=== PATIENT | female | born 1940 | race Caucasian/White ===

== ENCOUNTER 2022-04-20 12:51 | Inpatient (IN) | payer MEDICARE, OTHER, MEDICAID, SELFPAY ==
[2022-04-20] VITALS (11 sets, daily range): BP systolic 114–144; BP diastolic 48–82; PULSE 49–74; RESP 9–18; TEMP 36.2–36.7; O2SAT 94–100; BMI 29.2; BMI 27.8
--- NOTE | 2022-04-20 13:09 | CTR_ITS ---
PROCEDURE INFORMATION: Exam: CT Head Without Contrast Exam date and time: 04/20/2022 1:51 PM Age: 81 years old Clinical indication: Altered mental status/memory loss; Additional info: AMS TECHNIQUE: Imaging protocol: Computed tomography of the head without contrast. Radiation optimization: All CT scans at this facility use at least one of these dose optimization techniques: automated exposure control; mA and/or kV adjustment per patient size (includes targeted exams where dose is matched to clinical indication); or iterative reconstruction. COMPARISON: No relevant prior studies available. RADIATION DOSE METRICS: Total DLP (mGy-cm): 1177.7 FINDINGS: Brain: There is mild diffuse cerebral atrophy present, consistent with this patient's age. Periventricular and subcortical white matter low densities are present which at this age likely represent microvascular ischemic change. No evidence for large acute ischemic infarction. Please note acute ischemia can be occult by head CT. No evidence for acute intracranial hemorrhage. Calcified plaque is present within the intracranial vasculature. Cerebral ventricles: No ventriculomegaly. Paranasal sinuses: Visualized sinuses are unremarkable. No fluid levels. Mastoid air cells: Visualized mastoid air cells are well aerated. Bones/joints: Unremarkable. No acute fracture. Soft tissues: Unremarkable. CT/CT head wo con* [id number] IMPRESSION: There are senescent changes of the brain as described above. No evidence for large acute ischemic infarction or acute intracranial injury.
--- NOTE | 2022-04-20 13:09 | XRR_ITS ---
PROCEDURE INFORMATION: Exam: XR Chest Exam date and time: 04/20/2022 1:47 PM Age: 81 years old Clinical indication: Other: AMS TECHNIQUE: Imaging protocol: Radiologic exam of the chest. Views: 1 view. COMPARISON: No relevant prior studies available. FINDINGS: Lungs: Unremarkable. No consolidation. Pleural spaces: Unremarkable. No pleural effusion. No pneumothorax. Heart/Mediastinum: Unremarkable. No cardiomegaly. Vasculature: There is calcified plaque in the aortic arch. Bones/joints: Unremarkable. XR/XR chest 1V portable [id number] IMPRESSION: No evidence for acute cardiopulmonary disease.
--- NOTE | 2022-04-20 13:11 | W.ED.GENADLT ---
HPI - General Adult General: Chief complaint: Altered Mental Status Stated complaint: poss UTI Time Seen by Provider: 04/20/22 13:08 History of Present Illness: Patient is an 81-year-old female with history of baseline dementia, previous UTI presents to the emergency room with concerns for confusion for the last 3 to 4 days. Per family, patient has become increasingly confused in the last 3 to 4 days. Patient is disoriented to time and family found patient altered rest at 5 AM this morning thinking is 10 AM. In addition, patient was noted and not acting like herself and has has had difficulty finding words. Denies nausea/vomiting, fever/chill, chest pain, shortness of breath, abdominal pain, dysuria/hematuria/polyuria, diarrhea/melena/hematochezia. Onset:3-4 days ago Duration:3-4 days Location:home Severity:moderate Associated symptoms: Deny chest pain, dyspnea, nausea, rash, palpitations or vomiting Review of Systems Const: Denies: fever(s) or chills Eyes: Denies: change in vision ENMT: Denies: mouth pain Card: Denies: chest pain or palpitations Resp: Denies: dyspnea or non-productive cough GI: Denies: abdominal pain, nausea, vomiting or diarrhea : Denies: dysuria Musc: Denies: extremity pain Skin/Breast: Denies: rash or new lesions Neuro: Reports: other (+increased confusion and disorientation); Denies: weakness in extremities Psych: Reports: other (Normal mood) Issac/Lymph: Denies: easy bruising PFS ED PFSH: Medical History Dementia UTI (urinary tract infection) Social History Smoking and tobacco status: never smoked Alcohol intake: never Physical Exam Const: COMMON NORMALS: alert HENMT: COMMON NORMALS: atraumatic HEAD & SCALP: atraumatic MOUTH: moist mucous membranes not abnormal Eye: COMMON NORMALS: EOMs intact bilaterally and conjunctivae normal CONJUNCTIVA: Yes conjunctivae normal Neck/C-Spine: COMMON NORMALS: full ROM and supple Resp: COMMON NORMALS: normal respiratory effort and clear to auscultation bilaterally AUSCULTATION: clear to auscultation bilaterally Cardio: COMMON NORMALS: regular rate RATE: regular rate GI: COMMON NORMALS: Soft to palpation and non-tender PALPATION: Yes Soft to palpation Extremity: COMMON NORMALS: full ROM Neuro: SENSORIUM/ORIENTATION: Yes alert MOTOR EXAM: No Abnormal motor strength present and Other motor observations present (no focal motor deficits) OTHER: AOx3, cranial nerves II through XII intact tact, sensations intact in all extremity, strength 5 out of 5 in all extremity, patient has no language or word finding difficulty on conversation Psych: COMMON NORMALS: speech normal SPEECH: Yes normal speech MOOD & AFFECT: Yes euthymic mood Course Vital Signs: Vital signs: Vital Signs Temperature 97.5 F L 04/23/22 12:00 Pulse Rate 94 04/23/22 12:00 Respiratory Rate 15 04/23/22 12:00 Blood Pressure 117/73 04/23/22 12:00 Pulse Oximetry 98 04/23/22 12:00 Oxygen Delivery Me thod 04/23/22 12:00 MDM - General Adult Medical Decision Making Patient is an 81-year-old female with history of baseline dementia, previous UTI presents to the emergency room with concerns for confusion for the last 3 to 4 days. Physical exam, patient is AAOx3, cranial nerves II through grossly intact. Strength is intact in all extremities. Patient has no receptive or expressive aphasia. Patient is hemodynamically stable. White count 6.7. He 10.7 today without any baseline for comparison. He was negative for any acute findings. CT abdomen pelvis showed left-sided heterogeneous lesion of the kideny. No signs of obstructive uropathy. Incidental findings of L kidney lesion discussed extensively with patient. Patient received a copy of the CT report with the documented findings. Patient is instructed to follow up urgently with specialists. Given THE patient's creatinine of 2.0 I suspect that this is likely related to dehydration given decreased p.o. intake in the last few days. Patient with admitted to hospital for IVF. S/p 500cc of IVF. Disposition: admission Lab Data : 04/23/22 04:13 04/23/22 04:13 Radiology Impressions Chest X-Ray 04/20/22 13:09 IMPRESSION: No evidence for acute cardiopulmonary disease. Head CT 04/20/22 13:09 IMPRESSION: There are senescent changes of the brain as described above. No evidence for large acute ischemic infarction or acute intracranial injury. Abdomen/Pelvis CT 04/20/22 15:14 IMPRESSION: 1. There is a 2.9 cm lesion with internal complexity in the left kidney. CT scan abdomen/pelvis with IV contrast, renal protocol, is recommended for further evaluation. 2. 6 mm calcified density at the left renal hilum may represent a vascular calcification or a nonobstructing calculus. No obstructing urinary tract calculi identified. 3. Colonic constipation is present. COMMENTS: Consistent with the [employer]'s Incidental Findings Committee white paper (J Am Yusef Radiol 2018): Any incidental renal lesion less than 1 cm or classified as too small to characterize, or any incidental cystic renal lesion characterized as simple-appearing, is likely benign. No follow-up imaging is recommended for these lesions per consensus recommendations based on imaging criteria. Laboratory Results WBC 5.6 10^3/uL (4.0-10.0) 04/21/22 05:28 RBC 3.25 10^6/uL (4.1-5.3) L 04/21/22 05:28 Hgb 9.7 g/dL (11.5-15.3) L 04/21/22 05:28 Hct 30.0 % (37.0-47.0) L 04/21/22 05:28 MCV 92.3 fl (81-99) 04/21/22 05:28 MCH 29.8 pg (28.0-34.0) 04/21/22 05:28 MCHC 32.3 g/dL (30.0-36.0) 04/21/22 05:28 RDW 13.2 % (12.1-15.1) 04/21/22 05:28 Plt Count 162 10^3/cmm (130-400) 04/21/22 05:28 MPV 11.1 fL (7.4-10.4) H 04/21/22 05:28 Neut % (Auto) 49.3 % 04/21/22 05:28 Lymph % (Auto) 34.8 % 04/21/22 05:28 [place] % (Auto) 8.6 % 04/21/22 05:28 Eos % (Auto) 4.6 % 04/21/22 05:28 Baso % (Auto) 2.5 % 04/21/22 05:28 Neut # (Auto) 2.76 10^3/uL (1.8-7.7) 04/21/22 05:28 Lymph # (Auto) 2.0 10^3/uL (0.8-4.8) 04/21/22 05:28 [place] # (Auto) 0.5 10^3/uL (0.2-0.9) 04/21/22 05:28 Eos # (Auto) 0.3 10^3/uL (0.0-0.8) 04/21/22 05:28 Baso # (Auto) 0.1 10^3/uL (0.0-0.1) 04/21/22 05:28 Nucleated RBC % (auto) 0 % 04/21/22 05:28 Nucleated RBCs # 0.0 /100WBC 04/21/22 05:28 Sodium 145 mmol/L (136-145) 04/21/22 05:28 Potassium 4.1 mmol/L (3.5-5.1) 04/21/22 05:28 Chloride 113 mmol/L (98-107) H 04/21/22 05:28 Carbon Dioxide 24 mmol/L (22-29) 04/21/22 05:28 Anion Gap 12.1 (5-19) 04/21/22 05:28 BUN 31 mg/dL (8-23) H 04/21/22 05:28 Creatinine 1.7 mg/dL (0.5-0.9) H 04/21/22 05:28 GFR Calculation Not Reportable 04/21/22 05:28 Glucose 101 mg/dL (65-115) 04/21/22 05:28 Estimat Average Glucose 105 04/20/22 13:30 Hemoglobin A1c 5.3 % (4.0-6.0) 04/20/22 13:30 Calculated Osmolality 307 mOsm/kg (285-295) H 04/21/22 05:28 Calcium 8.4 mg/dL (8.5-10.5) L 04/21/22 05:28 Phosphorus 3.6 mg/dL (2.5-4.5) 04/21/22 05:28 Magnesium 1.9 mg/dL (1.7-2.3) 04/21/22 05:28 Iron 43 ug/dL (37-145) 04/21/22 05:28 TIBC 201 mcg/dl 04/21/22 05:28 % Saturation 21.3 % (20-50) 04/21/22 05:28 Unsat Iron Binding 158 ug/dL (112-347) 04/21/22 05:28 Ferritin 99 ng/mL (15-150) 04/21/22 05:28 Total Bilirubin 0.2 mg/dL (0.15-1.2) 04/20/22 13:30 AST 11 U/L (0-32) 04/20/22 13:30 ALT 11 U/L (0-33) 04/20/22 13:30 Alkaline Phosphatase 105 U/L (35-105) 04/20/22 13:30 Troponin T Baseline 27 ng/L (0-10) H 04/20/22 13:30 Troponin T 120 Minute 25.09 ng/L (0-10) H 04/20/22 15:41 Delta Troponin T -1.91 ABS# (0-10) L 04/20/22 15:41 Troponin T Hi Sens 6Hr 23.59 ng/L (0-10) H 04/20/22 18:45 Troponin T Hi Sens 6Hr Delta -3.41 ng/L (0-12) L 04/20/22 18:45 Total Protein 6.8 g/dL (6.6-8.7) 04/20/22 13:30 Albumin 3.8 g/dL (3.5-5.2) 04/20/22 13:30 Globulin 3.0 g/dL (1.3-4.6) 04/20/22 13:30 Triglycerides 186 mg/dL (0-150) H 04/20/22 13:30 Cholesterol 159 mg/dL (0-200) 04/20/22 13:30 LDL Cholesterol, Calc 53 mg/dL (50-129) 04/20/22 13:30 HDL Cholesterol 69 mg/dL (60-100) 04/20/22 13:30 LDL/HDL Ratio 0.77 RATIO (0.00-3.22) 04/20/22 13:30 Cholesterol/HDL Ratio 2.30 mg/dL (0.0-4.40) 04/20/22 13:30 Vitamin B12 262 pg/mL (232-1245) 04/21/22 05:28 Folate > 20.0 ng/mL (4.8-37.3) 04/21/22 05:28 TSH 0.30 uIU/mL (0.27-4.20) 04/20/22 15:41 Free T4 1.07 ng/dL (0.82-1.77) 04/20/22 13:30 Urine Color Yellow (Yellow) 04/20/22 14:54 Urine Appearance Clear (CLEAR) 04/20/22 14:54 Urine pH 6 (5-7) 04/20/22 14:54 Ur Specific [place] 1.020 (1.005-1.030) 04/20/22 14:54 Urine Protein Neg (Negative) 04/20/22 14:54 Urine Glucose (UA) Norm (Normal) 04/20/22 14:54 Urine Ketones 1+ (Negative) H 04/20/22 14:54 Urine Blood 2+ (Negative) H 04/20/22 14:54 Urine Nitrate Negative (Negative) 04/20/22 14:54 Urine Bilirubin Neg (Negative) 04/20/22 14:54 Urine Urobilinogen Neg mg/dL (Negative) 04/20/22 14:54 Ur Leukocyte Esterase Negative (Negative) 04/20/22 14:54 Urine RBC None /hpf (0-2) 04/20/22 14:54 Urine WBC None /hpf (0-5) 04/20/22 14:54 Ur Squamous Epith Cells None /hpf (0-5) 04/20/22 14:54 Amorphous Sediment Not Reportable 04/20/22 14:54 Urine Bacteria None /hpf (NONE) 04/20/22 14:54 Urine Mucus 1+ /hpf 04/20/22 14:54 Urine Yeast 1+ /hpf H 04/20/22 14:54 Imaging Data Other Imaging: Radiologist's impression: [address] [address] [address] Scan Report Signed Patient: Stefanie Black Unit #: [id number] : 1940 Age/Sex: 81 / F ADM Date: 04/20/22 Loc: ER Room/Bed: Attending Dr: Ordering Provider/Ordering MD: Casandra Sanabria MD Date of Service: 04/20/22 Procedure(s): CT abdomen pelvis wo con [id number] Accession Number(s): [id number] Report Number: [id number] PROCEDURE INFORMATION: Exam: CT Abdomen And Pelvis Without Contrast Exam date and time: 04/20/2022 3:20 PM Age: 81 years old Clinical indication: Abdominal pain; Generalized; Eval stone TECHNIQUE: Imaging protocol: Computed tomography of the abdomen and pelvis without contrast. Radiation optimization: All CT scans at this facility use at least one of these dose optimization techniques: automated exposure control; mA and/or kV adjustment per patient size (includes targeted exams where dose is matched to clinical indication); or iterative reconstruction. COMPARISON: CR (CHEST, ) 04/20/2022 1:47 PM RADIATION DOSE METRICS: Total DLP (mGy-cm): 556.09 FINDINGS: Liver: Normal. No mass. Gallbladder and bile ducts: Normal. No calcified stones. No ductal dilation. Pancreas: Normal. No ductal dilation. Spleen: Normal. No splenomegaly. Adrenal glands: Normal. No mass. Kidneys and ureters: There is a 2.9 cm lesion with internal complexity off the medial aspect of the left kidney superior pole. 6 mm calcified density at the left renal hilum may represent a vascular calcification or a nonobstructing calculus. No obstructing urinary tract calculi identified. Stomach and bowel: There is diverticulosis of the colon without evidence of diverticulitis. Colonic constipation is present. Appendix: A normal appendix is identified. Intraperitoneal space: Unremarkable. No free air. No significant fluid collection. Vasculature: Multi-vessel atherosclerotic disease. Lymph nodes: Unremarkable. No enlarged lymph nodes. Urinary bladder: Unremarkable as visualized. Reproductive: There is a 13 mm calcified fibroid in the uterus. Bones/joints: Unremarkable. No acute fracture. Soft tissues: Unremarkable. CT/CT abdomen pelvis con [id number] IMPRESSION: 1. There is a 2.9 cm lesion with internal complexity in the left kidney. CT scan abdomen/pelvis with IV contrast, renal protocol, is recommended for further evaluation. 2. 6 mm calcified density at the left renal hilum may represent a vascular calcification or a nonobstructing calculus. No obstructing urinary tract calculi identified. 3. Colonic constipation is present. ? COMMENTS: Consistent with the [place]'s Incidental Findings Committee white paper (J Am Yusef Radiol 2018): Any incidental renal lesion less than 1 cm or classified as too small to characterize, or any incidental cystic renal lesion characterized as simple-appearing, is likely benign. No follow-up imaging is recommended for these lesions per consensus recommendations based on imaging criteria. ? Dictated By: Alyssa Garza MD Signed By: Alyssa Garza MD Signed Date/Time: 04/20/22 1539 DD/ [address] [employer] [address] [address] Scan Report Signed Patient: Stefanie Black Unit #: [id number] : 1940 Age/Sex: 81 / F ADM Date: 04/20/22 Loc: ER Room/Bed: Attending Dr: Ordering Provider/Ordering MD: Casandra Sanabria MD Date of Service: 04/20/22 Procedure(s): CT head wo con* [id number] Accession Number(s): [id number] Report Number: [id number] PROCEDURE INFORMATION: Exam: CT Head Without Contrast Exam date and time: 04/20/2022 1:51 PM Age: 81 years old Clinical indication: Altered mental status/memory loss; Additional info: AMS TECHNIQUE: Imaging protocol: Computed tomography of the head without contrast. Radiation optimization: All CT scans at this facility use at least one of these dose optimization techniques: automated exposure control; mA and/or kV adjustment per patient size (includes targeted exams where dose is matched to clinical indication); or iterative reconstruction. COMPARISON: No relevant prior studies available. RADIATION DOSE METRICS: Total DLP (mGy-cm): 1177.7 FINDINGS: Brain: There is mild diffuse cerebral atrophy present, consistent with this patient's age. Periventricular and subcortical white matter low densities are present which at this age likely represent microvascular ischemic change. No evidence for large acute ischemic infarction. Please note acute ischemia can be occult by head CT. No evidence for acute intracranial hemorrhage. Calcified plaque is present within the intracranial vasculature. Cerebral ventricles: No ventriculomegaly. Paranasal sinuses: Visualized sinuses are unremarkable. No fluid levels. Mastoid air cells: Visualized mastoid air cells are well aerated. Bones/joints: Unremarkable. No acute fracture. Soft tissues: Unremarkable. CT/CT head wo con* [id number] IMPRESSION: There are senescent changes of the brain as described above. No evidence for large acute ischemic infarction or acute intracranial injury. ? Dictated By: Alyssa Garza MD Signed By: Alyssa Garza MD Signed Date/Time: 04/20/22 1520 DD/ [address] [address] XRay Report Signed Patient: Stefanie Black Unit #: [id number] : 1940 Age/Sex: 81 / F ADM Date: 04/20/22 Loc: ER Room/Bed: Attending Dr: Ordering Provider/Ordering MD: Casandra Sanabria MD Date of Service: 04/20/22 Procedure(s): XR chest 1V portable [id number] Accession Number(s): [id number] Report Number: [id number] PROCEDURE INFORMATION: Exam: XR Chest Exam date and time: 04/20/2022 1:47 PM Age: 81 years old Clinical indication: Other: AMS TECHNIQUE: Imaging protocol: Radiologic exam of the chest. Views: 1 view. COMPARISON: No relevant prior studies available. FINDINGS: Lungs: Unremarkable. No consolidation. Pleural spaces: Unremarkable. No pleural effusion. No pneumothorax. Heart/Mediastinum: Unremarkable. No cardiomegaly. Vasculature: There is calcified plaque in the aortic arch. Bones/joints: Unremarkable. XR/XR chest 1V portable [id number] IMPRESSION: No evidence for acute cardiopulmonary disease. ? Dictated By: Alyssa Garza MD Signed By: Alyssa Garza MD Signed Date/Time: 04/20/22 152 DD/ 1347 Discharge Plan Discharge Patient Disposition: Admitted As Inpatient Admit Provider: Eliud Warren Clinical Impression: DANIEL (acute kidney injury), Altered mental status, Acute dehydration Condition: Stable Discharge Diet: Advance as tolerated Discharge Activity: Resume usual activity Coding Level of Care Code ED Advertising Representative for Chg Fwd Exam Comprehensive
[2022-04-20 13:36] LABS: Basophils # 0.2 10^3/uL (0.0-0.1); Basophils % 2.5 %; Eosinophils # 0.3 10^3/uL (0.0-0.8); Eosinophils % 3.9 %; Hematocrit 34.1 % (37.0-47.0); Hemoglobin 10.7 g/dL (11.5-15.3); Lymphocytes # 2.4 10^3/uL (0.8-4.8); Lymphocytes % 36.3 %; Mean Corpuscular HGB Conc 31.4 g/dL (30.0-36.0); Mean Corpuscular Volume 92.4 fl (81-99); Mean Platelet Volume 11.2 fL (7.4-10.4); Monocytes # 0.5 10^3/uL (0.2-0.9); Monocytes % 6.7 %; Neutrophils # 3.35 10^3/uL (1.8-7.7); Neutrophils % 50.3 %; Nucleated Red Blood Cells % 0 %; Platelet Count 210 10^3/cmm (130-400); Red Blood Count 3.69 10^6/uL (4.1-5.3); Red Cell Distribution Width 13.2 % (12.1-15.1); White Blood Count 6.7 10^3/uL (4.0-10.0)
--- NOTE | 2022-04-20 13:38 | ECG_ITS ---
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 Measurements Intervals [place] Rate: 52 P: 91 UT: 294 QRS: 22 QRSD: 98 T: 93 QT: 421 QTc: 392 Interpretive Statements SINUS BRADYCARDIA WITH FIRST DEGREE AV BLOCK LOW QRS VOLTAGE IN PRECORDIAL LEADS [QRS DEFLECTION < 1.0 mV IN CHEST LEADS] PATTERN CONSISTENT WITH PULMONARY DISEASE NONSPECIFIC ST & T-WAVE ABNORMALITY No previous ECG available for comparison Electronically Signed On 04-20-2022 19:33:37 CDT by Hilaria Yoder M.D. [id number]
[2022-04-20] MEDS: sodium chloride 0.9% 500 ML IV (14:01)
[2022-04-20 14:07] LABS: Troponin(5th) Baseline 27 ng/L (0-10)
[2022-04-20 14:18] LABS: Alanine Aminotransferase 11 U/L (0-33); Albumin Level 3.8 g/dL (3.5-5.2); Alkaline Phosphatase 105 U/L (35-105); Anion Gap 13.4 (5-19); Aspartate Amino Transferase 11 U/L (0-32); Blood Urea Nitrogen 40 mg/dL (8-23); Calcium 9.1 mg/dL (8.5-10.5); Carbon Dioxide 28 mmol/L (22-29); Chloride 105 mmol/L (98-107); Free T4 Free Thyroxine 1.07 ng/dL (0.82-1.77); Glucose 115 mg/dL (65-115); Osmolality Calculated 307 mOsm/kg (285-295); Potassium 3.4 mmol/L (3.5-5.1); Sodium 143 mmol/L (136-145); Thyroid Stimulating Hormone 0.34 uIU/mL (0.27-4.20); Total Bilirubin 0.2 mg/dL (0.15-1.2); Total Protein 6.8 g/dL (6.6-8.7)
[2022-04-20 15:12] LABS: Add Urine Microscopic? YES; Bilirubin Urine Neg (Negative); Blood Urine 2+ (Negative); Glucose Urine UA Norm (Normal); Ketones Urine 1+ (Negative); Leukocyte Esterase Urine Negative (Negative); Nitrate Urine Negative (Negative); Protein Urine Neg (Negative); Urine Appearance Clear (CLEAR); Urine Color Yellow (Yellow); Urobilinogen Urine Neg (Negative); pH Urine 6 (5-7)
--- NOTE | 2022-04-20 15:12 | ECG_ITS ---
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 Measurements Intervals [place] Rate: 54 P: 93 [place]: 284 QRS: 24 QRSD: 91 T: 85 QT: 429 QTc: 407 Interpretive Statements SINUS BRADYCARDIA WITH FIRST DEGREE AV BLOCK LOW QRS VOLTAGE IN PRECORDIAL LEADS [QRS DEFLECTION < 1.0 mV IN CHEST LEADS] Compared to ECG 04/20/2022 13:38:19 T-wave abnormality no longer present Electronically Signed On 04-20-2022 19:39:30 CDT by Hilaria Yoder M.D. [email or web address] [id number]
--- NOTE | 2022-04-20 15:14 | CTR_ITS ---
PROCEDURE INFORMATION: Exam: CT Abdomen And Pelvis Without Contrast Exam date and time: 04/20/2022 3:20 PM Age: 81 years old Clinical indication: Abdominal pain; Generalized; Eval stone TECHNIQUE: Imaging protocol: Computed tomography of the abdomen and pelvis without contrast. Radiation optimization: All CT scans at this facility use at least one of these dose optimization techniques: automated exposure control; mA and/or kV adjustment per patient size (includes targeted exams where dose is matched to clinical indication); or iterative reconstruction. COMPARISON: CR (CHEST, ) 04/20/2022 1:47 PM RADIATION DOSE METRICS: Total DLP (mGy-cm): 556.09 FINDINGS: Liver: Normal. No mass. Gallbladder and bile ducts: Normal. No calcified stones. No ductal dilation. Pancreas: Normal. No ductal dilation. Spleen: Normal. No splenomegaly. Adrenal glands: Normal. No mass. Kidneys and ureters: There is a 2.9 cm lesion with internal complexity off the medial aspect of the left kidney superior pole. 6 mm calcified density at the left renal hilum may represent a vascular calcification or a nonobstructing calculus. No obstructing urinary tract calculi identified. Stomach and bowel: There is diverticulosis of the colon without evidence of diverticulitis. Colonic constipation is present. Appendix: A normal appendix is identified. Intraperitoneal space: Unremarkable. No free air. No significant fluid collection. Vasculature: Multi-vessel atherosclerotic disease. Lymph nodes: Unremarkable. No enlarged lymph nodes. Urinary bladder: Unremarkable as visualized. Reproductive: There is a 13 mm calcified fibroid in the uterus. Bones/joints: Unremarkable. No acute fracture. Soft tissues: Unremarkable. CT/CT abdomen pelvis wo con [id number] IMPRESSION: 1. There is a 2.9 cm lesion with internal complexity in the left kidney. CT scan abdomen/pelvis with IV contrast, renal protocol, is recommended for further evaluation. 2. 6 mm calcified density at the left renal hilum may represent a vascular calcification or a nonobstructing calculus. No obstructing urinary tract calculi identified. 3. Colonic constipation is present. COMMENTS: Consistent with the [employer]'s Incidental Findings Committee white paper (J Am Yusef Radiol 2018): Any incidental renal lesion less than 1 cm or classified as too small to characterize, or any incidental cystic renal lesion characterized as simple-appearing, is likely benign. No follow-up imaging is recommended for these lesions per consensus recommendations based on imaging criteria.
[2022-04-20 15:26] LABS: Add Urine Culture? No; Mucus Urine 1+ /hpf
[2022-04-20 16:10] LABS: Troponin 5 2HR 25.09 ng/L (0-10)
[2022-04-20 16:35] LABS: Troponin 5 2HR Delta -1.91 ABS# (0-10)
--- NOTE | 2022-04-20 16:52 | P.HP_ITS ---
Providers/Chief Complaint Chief Complaint: poss UTI History of Present Illness Stefanie Black is a 81 year old female with a past medical history of hypertension, hyperlipidemia, dementia, history of TIA who presents to [facility] due to increased weakness, increased confusion, poor appetite. According to patient son, at [facility] she is alert to person alert to person, to place, to time, does have short-term memory loss, she can ambulate on her own, she can feed herself, as recently as March she was in a residential, she was admitted due to recurrent UTIs, COVID-19, deconditioning, now out of the residential at home with him and her , he tells me that her appetite has declined, she is eating less, increasingly deconditioned, she has been increasingly confused, no fevers, no cough, no falls, no chest pain complaints, currently patient does not have any complaints, she is alert to person, to place, to time, she has no particular pain complaints, no symptoms of a stroke no facial droop, no slurring of her words, Review of Systems Const: Denies: fever(s) Eyes: Denies: change in vision ENMT: Denies: nasal congestion Resp: Denies: dyspnea GI: Denies: abdominal pain, nausea, vomiting or diarrhea : Denies: dysuria Neuro: Denies: headache(s), dizziness or vertigo Medications/Allergies Home Medications Medication Instructions Recorded Confirmed Last Taken Type amlodipine 10 mg tablet 10 mg PO DAILY 04/20/22 04/20/22 04/20/22 History aspirin 81 mg chewable tablet 81 mg PO DAILY 04/20/22 04/20/22 04/20/22 History atorvastatin 20 mg tablet 20 mg PO DAILY 04/20/22 04/20/22 04/19/22 History baclofen 10 mg tablet 10 mg PO BID 04/20/22 04/20/22 04/20/22 History ergocalciferol (vitamin D2) 1,250 1,250 mcg PO Q7D 04/20/22 04/20/22 04/14/22 History mcg (50,000 unit) capsule famotidine 20 mg tablet 20 mg PO DAILY 04/20/22 04/20/22 04/20/22 History folic acid 1 mg tablet 1 mg PO DAILY 04/20/22 04/20/22 04/20/22 History hydrochlorothiazide 25 mg tablet 25 mg PO DAILY 04/20/22 04/20/22 04/20/22 History ipratropium 20 mcg-albuterol 100 1 puff inhalation Q4H PRN 04/20/22 04/20/22 Unknown History mcg/actuation mist for inhalation Shortness Of Breath (Combivent Respimat) ondansetron HCl 4 mg tablet 4 mg PO Q6H PRN Nausea 04/20/22 04/20/22 Unknown History Allergies Allergy/AdvReac Type Severity Reaction Status Date / Time No Known Allergies Allergy Unverified 04/20/22 17:09 PFSH Acute PFSH: Medical History Dementia UTI (urinary tract infection) Social History Smoking and tobacco status: never smoked Alcohol intake: never Substance/Drug Use: never Vitals/I&O/Wt Last Vital Signs Pulse 54 L 04/20/22 15:00 Resp 18 04/20/22 15:00 BP 127/56 04/20/22 15:00 Pulse Ox 97 04/20/22 15:00 O2 Del Method 04/20/22 13:33 Weight last 48 hrs Weight 74.843 kg Physical Exam Const: COMMON NORMALS: no acute distress EXAM LIMITATIONS: altered mental status HENMT: COMMON NORMALS: normocephalic HEAD & SCALP: normocephalic Neck/C-Spine: COMMON NORMALS: no JVD Resp: COMMON NORMALS: normal respiratory effort, No retractions, No use of accessory muscles and clear to auscultation bilaterally AUSCULTATION: clear to auscultation bilaterally Cardio: COMMON NORMALS: no JVD, regular rate, regular rhythm, S1 normal heart sound present and S2 normal heart sound present RATE: regular rate RHYTHM: regular rhythm HEART SOUNDS: S1 normal heart sound present and S2 normal heart sound present GI: COMMON NORMALS: Normal to inspection, nondistended, normoactive bowel sounds present, Soft to palpation, non-tender, No hepatosplenomegaly present, no masses and no bruits PALPATION: Yes Soft to palpation and Yes No hepatosplenomegaly present Extremity: COMMON NORMALS: capillary refill normal, no clubbing, cyanosis or edema, no calf tenderness and no pedal edema Neuro: COMMON NORMALS: patient oriented x3 Psych: COMMON NORMALS: mental status grossly normal Data : 04/20/22 13:30 04/20/22 13:30 A&P Assessment and plan (1) DANIEL (acute kidney injury): (2) Altered mental status: (3) Acute dehydration: (4) UTI (urinary tract infection): Plan DANIEL, IV fluids, baseline creatinine unknown UTI, Rocephin Altered mental status, monitor mentation closely Hypokalemia, replace NSTEMI, serial EKGs serial troponins telemetry monitoring Deconditioning, PT OT DNR/DNI Lovenox for DVT prophylaxis Attestations Medical Necessity Statement*: Patient requires hospitalization outpatient with observation, for UTI, dehydration Coding Level of Care Code Acute French Past[employer] Cook for g Fwd Diagnoses DANIEL (acute kidney injury) N17.9 Altered mental status R41.82 Acute dehydration E86.0 UTI (urinary tract infection) N39.0
[2022-04-20 18:05] LABS: Cholesterol 159 mg/dL (0-200); HDL Cholesterol 69 mg/dL (60-100); LDL Cholesterol Calculated 53 mg/dL (50-129); LDL HDL Ratio 0.77 RATIO (0.00-3.22); Triglycerides 186 mg/dL (0-150)
[2022-04-20] MEDS: enoxaparin 40 mg/0.4 mL Syringe SUBCUT (18:21)
[2022-04-20] MEDS: pantoprazole 40 mg SDV IVP (18:21)
[2022-04-20] MEDS: cefTRIAXone 1,000 MG in sodium chloride 0.9% (plus) 50 ML 100 MG IV (18:21)
[2022-04-20] MEDS: sodium chloride 0.9% 1,000 ML 75 ML IV (18:21)
[2022-04-20] MEDS: potassium chloride ER 20 mEq Tablet 40 MEQ PO (18:22)
--- NOTE | 2022-04-20 19:10 | ECG_ITS ---
[facility] Test Date: 2022-04-20 Pat Name: Stefanie Black Department: Room: 261 Gender: Female Social Work Manager: : [id number] Requested By: Casandra Sanabria Order Number: [id number] Regis MD: Hilaria Yoder M.D. Measurements Intervals Wood Rate: 61 P: 92 NM: 289 QRS: 9 QRSD: 95 T: 80 QT: 408 QTc: 411 Interpretive Statements SINUS RHYTHM WITH FIRST DEGREE AV BLOCK NONSPECIFIC T-WAVE ABNORMALITY Compared to ECG 04/20/2022 15:12:35 T-wave abnormality now present Sinus bradycardia no longer present Electronically Signed On 04-21-2022 18:27:22 CDT by Hilaria Yoder M.D. [id number]
[2022-04-20 19:12] LABS: Troponin 5 6HR 23.59 ng/L (0-10)
[2022-04-20 19:18] LABS: Troponin 5 6HR Delta -3.41 ng/L (0-12)
[2022-04-20] MEDS: atorvastatin 40 mg Tablet PO (20:05)
[2022-04-20 22:06] LABS: Estmated Average Glucose 105; Hemoglobin A1C 5.3 % (4.0-6.0)
[2022-04-21] VITALS (12 sets, daily range): BP systolic 120–149; BP diastolic 53–65; PULSE 54–65; RESP 10–17; TEMP 36.4–36.8; O2SAT 94–97
[2022-04-21 05:47] LABS: Basophils # 0.1 10^3/uL (0.0-0.1); Basophils % 2.5 %; Eosinophils # 0.3 10^3/uL (0.0-0.8); Eosinophils % 4.6 %; Hemoglobin 9.7 g/dL (11.5-15.3); Lymphocytes % 34.8 %; Mean Corpuscular HGB Conc 32.3 g/dL (30.0-36.0); Mean Corpuscular Hemoglobin 29.8 pg (28.0-34.0); Mean Corpuscular Volume 92.3 fl (81-99); Mean Platelet Volume 11.1 fL (7.4-10.4); Monocytes # 0.5 10^3/uL (0.2-0.9); Monocytes % 8.6 %; Neutrophils # 2.76 10^3/uL (1.8-7.7); Neutrophils % 49.3 %; Nucleated Red Blood Cells % 0 %; Platelet Count 162 10^3/cmm (130-400); Red Blood Count 3.25 10^6/uL (4.1-5.3); Red Cell Distribution Width 13.2 % (12.1-15.1); White Blood Count 5.6 10^3/uL (4.0-10.0)
[2022-04-21 06:10] LABS: Anion Gap 12.1 (5-19); Blood Urea Nitrogen 31 mg/dL (8-23); Calcium 8.4 mg/dL (8.5-10.5); Carbon Dioxide 24 mmol/L (22-29); Chloride 113 mmol/L (98-107); Glucose 101 mg/dL (65-115); Magnesium 1.9 mg/dL (1.7-2.3); Osmolality Calculated 307 mOsm/kg (285-295); Phosphorus 3.6 mg/dL (2.5-4.5); Potassium 4.1 mmol/L (3.5-5.1); Sodium 145 mmol/L (136-145)
[2022-04-21] MEDS: sodium chloride 0.9% 1,000 ML 75 ML IV ×2 (07:57→10:57)
[2022-04-21] MEDS: amlodipine 10 mg Tablet PO (10:56)
[2022-04-21] MEDS: folic acid 1 mg Tablet PO (10:57)
[2022-04-21] MEDS: potassium chloride ER 20 mEq Tablet 40 MEQ PO (10:57)
--- NOTE | 2022-04-21 11:03 | PC.OT ---
Patient was asleep when therapist entered. She awakened easily; however, declined evaluation due to fatigue.
--- NOTE | 2022-04-21 14:20 | P.PN_ITS ---
Subjective Subjective: Patient was seen this morning, she is alert to person, to place, not to time, early complaints this morning is is that she was given biscuits without gravy, she does not like the grape jam that was provided Vitals/I&O/Wt Last Vital Signs Temp 98.2 F 04/21/22 11:52 Pulse 56 L 04/21/22 11:52 Resp 16 04/21/22 11:52 BP 136/63 04/21/22 11:52 Pulse Ox 96 04/21/22 11:52 O2 Del Method 04/21/22 11:52 04/20/22 04/21/22 04/21/22 22:59 06:59 14:59 Intake Total 790 / 790 1465 / 1465 Output Total 300 / 300 450 / 750 Balance 490 / 490 -450 / 40 1465 / 1465 Weight last 48 hrs Weight 71.169 kg Weight 74.843 kg Physical Exam Narrative: Alert to person, to place, not to time, follows commands Const: COMMON NORMALS: no acute distress Resp: COMMON NORMALS: normal respiratory effort, No retractions, No use of accessory muscles and clear to auscultation bilaterally AUSCULTATION: clear to auscultation bilaterally Cardio: COMMON NORMALS: regular rate, regular rhythm, S1 normal heart sound present and S2 normal heart sound present RATE: regular rate RHYTHM: regular rhythm HEART SOUNDS: S1 normal heart sound present and S2 normal heart sound present GI: COMMON NORMALS: Normal to inspection, nondistended, normoactive bowel sounds present and non-tender Extremity: COMMON NORMALS: no pedal edema Psych: COMMON NORMALS: mental status grossly normal Data : 04/21/22 05:28 04/21/22 05:28 A&P Assessment and plan (1) DANIEL (acute kidney injury): (2) Altered mental status: (3) Acute dehydration: (4) UTI (urinary tract infection): Plan DANIEL, IV fluids, baseline creatinine unknown UTI, Rocephin Altered mental status, monitor mentation closely Hypokalemia, replace NSTEMI, serial EKGs serial troponins telemetry monitoring Acute anemia, likely dilutional, iron studies, Hemoccult stool hold Lovenox Deconditioning, PT OT Protein calorie malnutrition, consult speech therapy, consult nutrition DNR/DNI SCDs for DVT prophylaxis Attestations Medical Necessity Statement*: Patient requires hospital station for DANIEL, UTI, altered mental status, acute anemia, deconditioning Coding Level of Care Code Acute Supervisor Laboratory Animal Facility for [facility] Fwd Diagnoses DANIEL (acute kidney injury) N17.9 Altered mental status R41.82 Acute dehydration E86.0 UTI (urinary tract infection) N39.0
[2022-04-21 14:44] LABS: Ferritin 99 ng/mL (15-150); Iron 43 ug/dL (37-145); Percent Saturation 21.3 % (20-50); Total Iron Binding Capacity 201 mcg/dl; Unsaturated Iron Binding 158 ug/dL (112-347)
[2022-04-21 14:59] LABS: Vitamin B12 262 pg/mL (232-1245)
[2022-04-21 16:59] LABS: Folate Level > 20.0 ng/mL (4.8-37.3)
[2022-04-21] MEDS: pantoprazole 40 mg SDV IVP (17:32)
[2022-04-21] MEDS: cefTRIAXone 1,000 MG in sodium chloride 0.9% (plus) 50 ML 100 MG IV (17:32)
[2022-04-21 19:40] LABS: Basophils # 0.2 10^3/uL (0.0-0.1); Basophils % 2.5 %; Eosinophils # 0.3 10^3/uL (0.0-0.8); Eosinophils % 4.2 %; Hematocrit 30.8 % (37.0-47.0); Hemoglobin 9.7 g/dL (11.5-15.3); Lymphocytes # 1.8 10^3/uL (0.8-4.8); Lymphocytes % 30.3 %; Mean Corpuscular HGB Conc 31.5 g/dL (30.0-36.0); Mean Corpuscular Hemoglobin 29.3 pg (28.0-34.0); Mean Corpuscular Volume 93.1 fl (81-99); Mean Platelet Volume 11.4 fL (7.4-10.4); Monocytes # 0.5 10^3/uL (0.2-0.9); Monocytes % 8.4 %; Neutrophils # 3.23 10^3/uL (1.8-7.7); Neutrophils % 54.3 %; Nucleated Red Blood Cells % 0 %; Platelet Count 160 10^3/cmm (130-400); Red Blood Count 3.31 10^6/uL (4.1-5.3); Red Cell Distribution Width 13.2 % (12.1-15.1)
[2022-04-21] MEDS: atorvastatin 40 mg Tablet PO (20:00)
[2022-04-22] VITALS (10 sets, daily range): BP systolic 133–158; BP diastolic 64–74; PULSE 61–91; RESP 16–18; TEMP 36.4–37.2; O2SAT 94–98
[2022-04-22] MEDS: sodium chloride 0.9% 1,000 ML 75 ML IV (00:29)
[2022-04-22 05:35] LABS: Basophils # 0.1 10^3/uL (0.0-0.1); Basophils % 1.6 %; Eosinophils # 0.3 10^3/uL (0.0-0.8); Eosinophils % 4.4 %; Hematocrit 33.4 % (37.0-47.0); Hemoglobin 10.4 g/dL (11.5-15.3); Lymphocytes # 1.7 10^3/uL (0.8-4.8); Mean Corpuscular HGB Conc 31.1 g/dL (30.0-36.0); Mean Corpuscular Hemoglobin 28.7 pg (28.0-34.0); Mean Corpuscular Volume 92.3 fl (81-99); Mean Platelet Volume 11.7 fL (7.4-10.4); Monocytes # 0.5 10^3/uL (0.2-0.9); Monocytes % 7.7 %; Neutrophils # 3.77 10^3/uL (1.8-7.7); Nucleated Red Blood Cells % 0 %; Platelet Count 158 10^3/cmm (130-400); Red Blood Count 3.62 10^6/uL (4.1-5.3); Red Cell Distribution Width 13.2 % (12.1-15.1); White Blood Count 6.4 10^3/uL (4.0-10.0)
[2022-04-22 06:05] LABS: Anion Gap 12.3 (5-19); Blood Urea Nitrogen 24 mg/dL (8-23); Calcium 8.5 mg/dL (8.5-10.5); Carbon Dioxide 23 mmol/L (22-29); Chloride 109 mmol/L (98-107); Glucose 100 mg/dL (65-115); Osmolality Calculated 294 mOsm/kg (285-295); Potassium 4.3 mmol/L (3.5-5.1); Sodium 140 mmol/L (136-145)
[2022-04-22] MEDS: potassium chloride ER 20 mEq Tablet 40 MEQ PO (10:54)
[2022-04-22] MEDS: folic acid 1 mg Tablet PO (10:55)
[2022-04-22] MEDS: amlodipine 10 mg Tablet PO (10:55)
--- NOTE | 2022-04-22 13:42 | PC.CHAP ---
Pastoral Care Encounter/Spiritual Assessment Type of Contact [] Declined vending machine refiller visit [] Patient/Family/Request visit [] Outpatient visit [] Follow-up visit [] Physician referral [] Code/Alert [x] Routine visit [] Staff referral [] Actively dying [] Patient sleeping [] Family support [] [] Out of room [] Palliative care [] [x] Receiving care in room [] Pre-surgical visit [] Trauma [] Long length of stay [] ICU visit [] Other: Relational/Emotional Strength [] Patient feels connected with others/family/visitors/staff [] Distress [] Loneliness/isolation [] Abandonment Spirituality of Patient [] Person of Ap[place] [] Attends Taoist of their [place] [] Believes in Prayer [] Reads Bible or Zoroastrianism materials [] There are Spiritual issues to be addressed Table Attendant Interventions [] Prayer [] Active listening [] Non-anxious presence [] Spiritual/emotional support [] Crisis/trauma care [] Spiritual counseling [] Bereavement support [] Provided bereavement packet [] Provided Bible/devotional materials [] Provided toy/stuffed animal, coloring book to patient or family member [] Provided Communion [] Anointing/[place] [] Salvation [] Completed spiritual assessment [] Other: Impact on Illness or Injury [] Angry [] Fearful [] Anxious [] Often cries [] Exhaustion [] Unable to work [] Unable to attend oriental orthodox [] Unable to walk/stand [] Unable to read [] Unable to drive [] Unable to eat/drink [] Unable to sleep [] Unable to be with family [] Patient intubated [] Other: Summary Time spent with patient
--- NOTE | 2022-04-22 14:41 | P.PN_ITS ---
Subjective Subjective: Seen this morning. Patient sitting up in chair appearing comfortable at this time. Hemoglobin stable. DANIEL improving. Creatinine 1.3 today. Patient does have a complex lesion in kidney. Discussed with radiology today. Nonemergent follow-up recommended for further visualization. Patient will probably need a triphase scan with contrast. Due to acute kidney injury will defer follow-up for now. I will discussed this with the patient's family as well. Patient does have sundowning. However when seen she was quite alert and oriented to her surroundings and time. Vitals/I&O/Wt Last Vital Signs Temp 97.5 F L 04/22/22 12:00 Pulse 66 04/22/22 12:00 Resp 16 04/22/22 12:00 BP 133/64 04/22/22 12:00 Pulse Ox 97 04/22/22 12:00 O2 Del Method 04/22/22 12:00 04/21/22 04/22/22 04/22/22 22:59 06:59 14:59 Intake Total 410 / 1875 1000 / 2875 480 / 480 Balance 410 / 1875 1000 / 2875 480 / 480 Weight last 48 hrs Weight 71.169 kg Physical Exam Narrative: Alert to person, to place, time. Knows where she is and knows what is going on. Const: COMMON NORMALS: no acute distress Resp: COMMON NORMALS: normal respiratory effort, No retractions, No use of accessory muscles and clear to auscultation bilaterally AUSCULTATION: clear to auscultation bilaterally Cardio: COMMON NORMALS: regular rate, regular rhythm, S1 normal heart sound present and S2 normal heart sound present RATE: regular rate RHYTHM: regular rhythm HEART SOUNDS: S1 normal heart sound present and S2 normal heart sound present GI: COMMON NORMALS: Normal to inspection, nondistended, normoactive bowel sounds present and non-tender Extremity: COMMON NORMALS: no pedal edema Psych: COMMON NORMALS: mental status grossly normal Data : 04/22/22 04:53 04/22/22 04:53 A&P Assessment and plan (1) DANIEL (acute kidney injury): (2) Altered mental status: (3) Acute dehydration: (4) UTI (urinary tract infection): Plan DANIEL, IV fluids, baseline creatinine unknown UTI, Rocephin Altered mental status, monitor mentation closely. Improving. She has a history of dementia. Does have sundowners. Waxing and waning mentation. Hypokalemia, replace NSTEMI, serial EKGs serial troponins telemetry monitoring Acute anemia, likely dilutional, iron studies, Hemoccult stool hold Lovenox. Hemoglobin stable 10.4 today. Had a bowel movement yesterday however FOBT unable to be obtained. Complex renal lesion. Unsure if cyst or not. Nonemergent IV contrast triphasic study recommended. Creatinine 1.3 today. Will discuss with family to have her follow-up with primary care doctor for further evaluation of this. Deconditioning, PT OT Seen by speech therapy and nutrition. Advancing diet from cardiac to regular recommended. Patient does not meet criteria for protein calorie malnutrition according to aspirin. Family states patient likes her coffee and her spicy food. Will place patient on regular diet today. DNR/DNI SCDs for DVT prophylaxis Attestations Medical Necessity Statement*: Patient requires hospital station for DANIEL, UTI, altered mental status, acute anemia, deconditioning Coding Level of Care Code Acute Manager E Learning for [facility] Fwd Diagnoses DANIEL (acute kidney injury) N17.9 Altered mental status R41.82 Acute dehydration E86.0 UTI (urinary tract infection) N39.0
[2022-04-22] MEDS: pantoprazole 40 mg SDV IVP (17:44)
[2022-04-22] MEDS: cefTRIAXone 1,000 MG in sodium chloride 0.9% (plus) 50 ML 100 MG IV (17:45)
[2022-04-22] MEDS: atorvastatin 40 mg Tablet PO (20:41)
[2022-04-23] VITALS: BP 150/69; PULSE 71; RESP 17; TEMP 36.8; O2SAT 96
[2022-04-23] MEDS: sodium chloride 0.9% 1,000 ML 75 ML IV (02:17)
[2022-04-23 04:00] VITALS: BP 146/61; PULSE 75; RESP 17; TEMP 36.8; O2SAT 97
[2022-04-23 05:20] LABS: Basophils # 0.1 10^3/uL (0.0-0.1); Basophils % 1.5 %; Eosinophils # 0.2 10^3/uL (0.0-0.8); Hematocrit 32.9 % (37.0-47.0); Hemoglobin 10.6 g/dL (11.5-15.3); Lymphocytes # 1.7 10^3/uL (0.8-4.8); Lymphocytes % 31.7 %; Mean Corpuscular HGB Conc 32.2 g/dL (30.0-36.0); Mean Corpuscular Hemoglobin 29.3 pg (28.0-34.0); Mean Corpuscular Volume 90.9 fl (81-99); Mean Platelet Volume 11.7 fL (7.4-10.4); Monocytes # 0.4 10^3/uL (0.2-0.9); Monocytes % 7.6 %; Neutrophils # 3.01 10^3/uL (1.8-7.7); Neutrophils % 55.8 %; Nucleated Red Blood Cells % 0 %; Platelet Count 165 10^3/cmm (130-400); Red Blood Count 3.62 10^6/uL (4.1-5.3); Red Cell Distribution Width 13.2 % (12.1-15.1); White Blood Count 5.4 10^3/uL (4.0-10.0)
[2022-04-23 05:42] LABS: Anion Gap 13.8 (5-19); Blood Urea Nitrogen 22 mg/dL (8-23); Carbon Dioxide 23 mmol/L (22-29); Chloride 106 mmol/L (98-107); Glucose 107 mg/dL (65-115); Osmolality Calculated 290 mOsm/kg (285-295); Potassium 4.8 mmol/L (3.5-5.1); Sodium 138 mmol/L (136-145)
[2022-04-23 06:00] VITALS: PULSE 75
[2022-04-23 08:00] VITALS: BP 157/73; PULSE 76; PULSE 97; RESP 15; RESP 16; TEMP 36.4; O2SAT 96; O2SAT 97
[2022-04-23] MEDS: folic acid 1 mg Tablet PO (08:20)
[2022-04-23] MEDS: amlodipine 10 mg Tablet PO (08:21)
[2022-04-23] MEDS: potassium chloride ER 20 mEq Tablet 40 MEQ PO (08:21)
[2022-04-23 12:00] VITALS: BP 117/73; PULSE 94; RESP 15; TEMP 36.4; O2SAT 98
--- NOTE | 2022-04-23 13:00 | PM.DCS ---
Discharge Providers Date of Admission: 04/21/22 15:18 Date of Discharge: April 23, 2022 Attending Provider at Admission: Eliud Warren MD Attending Provider at Discharge: Solange Sainz MD Diagnoses at Discharge Discharge Diagnosis (1) DANIEL (acute kidney injury): Status: Resolved (2) Altered mental status: Status: Acute (3) Acute dehydration: Status: Resolved (4) UTI (urinary tract infection): Status: Acute Reason for Visit Reason for Visit: poss UTI Brief History: Stefanie Black is a 81 year old female with a past medical history of hypertension, hyperlipidemia, dementia, history of TIA who presents to [facility] due to increased weakness, increased confusion, poor appetite.? According to patient son, at [facility] she is alert to person alert to person, to place, to time, does have short-term memory loss, she can ambulate on her own, she can feed herself, as recently as March she was in a retirement, she was admitted due to recurrent UTIs, COVID-19, deconditioning, now out of the retirement at home with him and her , he tells me that her appetite has declined, she is eating less, increasingly deconditioned, she has been increasingly confused, no fevers, no cough, no falls, no chest pain complaints, currently patient does not have any complaints, she is alert to person, to place, to time, she has no particular pain complaints, no symptoms of a stroke no facial droop, no slurring of her words, Hospital Course Hospital Course Admitted for DANIEL which resolved. Tx with ceftriaxone for UTI. COmpleted 4 days. Discharged home with family. Walker setup as per their request. Had a complex renal lesion. Recommend outpatient follow up with IV contrast triphasic study. Discussed with family and they will f/u with PCP for further evaluation. Trop elevation most likely 2/2 to demand ischemia. Delta negative dc home in stable condition Physical Exam Narrative: Alert to person, to place, time. waxing waning mental status, family saw pt at discharge and said her mental status was at baseline Const: COMMON NORMALS: no acute distress Resp: COMMON NORMALS: normal respiratory effort, No retractions, No use of accessory muscles and clear to auscultation bilaterally AUSCULTATION: clear to auscultation bilaterally Cardio: COMMON NORMALS: regular rate, regular rhythm, S1 normal heart sound present and S2 normal heart sound present RATE: regular rate RHYTHM: regular rhythm HEART SOUNDS: S1 normal heart sound present and S2 normal heart sound present GI: COMMON NORMALS: Normal to inspection, nondistended, normoactive bowel sounds present and non-tender Extremity: COMMON NORMALS: no pedal edema Psych: COMMON NORMALS: mental status grossly normal Discharge Data Studies Completed and Pending Completed Studies During Hospitalization Category Date Time Status CT abdomen pelvis wo con [id number] Stat Cat Scan 04/20/22 15:[address] head wo con* [id number] Stat Cat Scan 04/20/22 13:09 Completed XR chest 1V portable [id number] Stat Exams 04/20/22 13:09 Completed Pending at discharge Category Date Time Status Basic Metabolic Panel AM LABS Lab 04/24/22 04:00 Ordered Complete Blood Count w/Auto AM LABS Lab 04/24/22 04:00 Ordered Radiology Impressions Chest X-Ray 04/20/22 13:09 IMPRESSION: No evidence for acute cardiopulmonary disease. Head CT 04/20/22 13:09 IMPRESSION: There are senescent changes of the brain as described above. No evidence for large acute ischemic infarction or acute intracranial injury. Abdomen/Pelvis CT 04/20/22 15:14 IMPRESSION: 1. There is a 2.9 cm lesion with internal complexity in the left kidney. CT scan abdomen/pelvis with IV contrast, renal protocol, is recommended for further evaluation. 2. 6 mm calcified density at the left renal hilum may represent a vascular calcification or a nonobstructing calculus. No obstructing urinary tract calculi identified. 3. Colonic constipation is present. COMMENTS: Consistent with the [employer]'s Incidental Findings Committee white paper (J Am Yusef Radiol 2018): Any incidental renal lesion less than 1 cm or classified as too small to characterize, or any incidental cystic renal lesion characterized as simple-appearing, is likely benign. No follow-up imaging is recommended for these lesions per consensus recommendations based on imaging criteria. Laboratory Results WBC 5.4 10^3/uL (4.0-10.0) 04/23/22 04:13 RBC 3.62 10^6/uL (4.1-5.3) L 04/23/22 04:13 Hgb 10.6 g/dL (11.5-15.3) L 04/23/22 04:13 Hct 32.9 % (37.0-47.0) L 04/23/22 04:13 MCV 90.9 fl (81-99) 04/23/22 04:13 MCH 29.3 pg (28.0-34.0) 04/23/22 04:13 MCHC 32.2 g/dL (30.0-36.0) 04/23/22 04:13 RDW 13.2 % (12.1-15.1) 04/23/22 04:13 Plt Count 165 10^3/cmm (130-400) 04/23/22 04:13 MPV 11.7 fL (7.4-10.4) H 04/23/22 04:13 Neut % (Auto) 55.8 % 04/23/22 04:13 Lymph % (Auto) 31.7 % 04/23/22 04:13 [place] % (Auto) 7.6 % 04/23/22 04:13 Eos % (Auto) 3.0 % 04/23/22 04:13 Baso % (Auto) 1.5 % 04/23/22 04:13 Neut # (Auto) 3.01 10^3/uL (1.8-7.7) 04/23/22 04:13 Lymph # (Auto) 1.7 10^3/uL (0.8-4.8) 04/23/22 04:13 [place] # (Auto) 0.4 10^3/uL (0.2-0.9) 04/23/22 04:13 Eos # (Auto) 0.2 10^3/uL (0.0-0.8) 04/23/22 04:13 Baso # (Auto) 0.1 10^3/uL (0.0-0.1) 04/23/22 04:13 Nucleated RBC % (auto) 0 % 04/23/22 04:13 Nucleated RBCs # 0.0 /100WBC 04/23/22 04:13 Sodium 138 mmol/L (136-145) 04/23/22 04:13 Potassium 4.8 mmol/L (3.5-5.1) 04/23/22 04:13 Chloride 106 mmol/L (98-107) 04/23/22 04:13 Carbon Dioxide 23 mmol/L (22-29) 04/23/22 04:13 Anion Gap 13.8 (5-19) 04/23/22 04:13 BUN 22 mg/dL (8-23) 04/23/22 04:13 Creatinine 1.4 mg/dL (0.5-0.9) H 04/23/22 04:13 GFR Calculation Not Reportable 04/23/22 04:13 Glucose 107 mg/dL (65-115) 04/23/22 04:13 Estimat Average Glucose 105 04/20/22 13:30 Hemoglobin A1c 5.3 % (4.0-6.0) 04/20/22 13:30 Calculated Osmolality 290 mOsm/kg (285-295) 04/23/22 04:13 Calcium 9.0 mg/dL (8.5-10.5) 04/23/22 04:13 Phosphorus 3.6 mg/dL (2.5-4.5) 04/21/22 05:28 Magnesium 1.9 mg/dL (1.7-2.3) 04/21/22 05:28 Iron 43 ug/dL (37-145) 04/21/22 05:28 TIBC 201 mcg/dl 04/21/22 05:28 % Saturation 21.3 % (20-50) 04/21/22 05:28 Unsat Iron Binding 158 ug/dL (112-347) 04/21/22 05:28 Ferritin 99 ng/mL (15-150) 04/21/22 05:28 Total Bilirubin 0.2 mg/dL (0.15-1.2) 04/20/22 13:30 AST 11 U/L (0-32) 04/20/22 13:30 ALT 11 U/L (0-33) 04/20/22 13:30 Alkaline Phosphatase 105 U/L (35-105) 04/20/22 13:30 Troponin T Baseline 27 ng/L (0-10) H 04/20/22 13:30 Troponin T 120 Minute 25.09 ng/L (0-10) H 04/20/22 15:41 Delta Troponin T -1.91 ABS# (0-10) L 04/20/22 15:41 Troponin T Hi Sens 6Hr 23.59 ng/L (0-10) H 04/20/22 18:45 Troponin T Hi Sens 6Hr Delta -3.41 ng/L (0-12) L 04/20/22 18:45 Total Protein 6.8 g/dL (6.6-8.7) 04/20/22 13:30 Albumin 3.8 g/dL (3.5-5.2) 04/20/22 13:30 Globulin 3.0 g/dL (1.3-4.6) 04/20/22 13:30 Triglycerides 186 mg/dL (0-150) H 04/20/22 13:30 Cholesterol 159 mg/dL (0-200) 04/20/22 13:30 LDL Cholesterol, Calc 53 mg/dL (50-129) 04/20/22 13:30 HDL Cholesterol 69 mg/dL (60-100) 04/20/22 13:30 LDL/HDL Ratio 0.77 RATIO (0.00-3.22) 04/20/22 13:30 Cholesterol/HDL Ratio 2.30 mg/dL (0.0-4.40) 04/20/22 13:30 Vitamin B12 262 pg/mL (232-1245) 04/21/22 05:28 Folate > 20.0 ng/mL (4.8-37.3) 04/21/22 05:28 TSH 0.30 uIU/mL (0.27-4.20) 04/20/22 15:41 Free T4 1.07 ng/dL (0.82-1.77) 04/20/22 13:30 Urine Color Yellow (Yellow) 04/20/22 14:54 Urine Appearance Clear (CLEAR) 04/20/22 14:54 Urine pH 6 (5-7) 04/20/22 14:54 Ur Specific [place] 1.020 (1.005-1.030) 04/20/22 14:54 Urine Protein Neg (Negative) 04/20/22 14:54 Urine Glucose (UA) Norm (Normal) 04/20/22 14:54 Urine Ketones 1+ (Negative) H 04/20/22 14:54 Urine Blood 2+ (Negative) H 04/20/22 14:54 Urine Nitrate Negative (Negative) 04/20/22 14:54 Urine Bilirubin Neg (Negative) 04/20/22 14:54 Urine Urobilinogen Neg mg/dL (Negative) 04/20/22 14:54 Ur Leukocyte Esterase Negative (Negative) 04/20/22 14:54 Urine RBC None /hpf (0-2) 04/20/22 14:54 Urine WBC None /hpf (0-5) 04/20/22 14:54 Ur Squamous Epith Cells None /hpf (0-5) 04/20/22 14:54 Amorphous Sediment Not Reportable 04/20/22 14:54 Urine Bacteria None /hpf (NONE) 04/20/22 14:54 Urine Mucus 1+ /hpf 04/20/22 14:54 Urine Yeast 1+ /hpf H 04/20/22 14:54 Vitals Last Vital Signs Temp 97.5 F L 04/23/22 12:00 Pulse 94 04/23/22 12:00 Resp 15 04/23/22 12:00 BP 117/73 04/23/22 12:00 Pulse Ox 98 04/23/22 12:00 O2 Del Method 04/23/22 12:00 Discharge Plan Discharge Patient Disposition: Home Condition: Stable Prescriptions: New folic acid 1 mg Tablet 1 mg PO DAILY 30 Days Qty: 30 0RF Continued famotidine 20 mg tablet 20 mg PO DAILY baclofen 10 mg tablet 10 mg PO BID amlodipine 10 mg tablet 10 mg PO DAILY folic acid 1 mg tablet 1 mg PO DAILY hydrochlorothiazide 25 mg tablet 25 mg PO DAILY ergocalciferol (vitamin D2) 1,250 mcg (50,000 unit) capsule 1,250 mcg PO Q7D Rx Instructions: ON SUNDAYS Combivent Respimat 20-100 mcg/actuation mist 1 puff INHALATION Q4H PRN (Reason: Shortness Of Breath) ondansetron HCl 4 mg Tablet 4 mg PO Q6H PRN (Reason: Nausea) aspirin 81 mg Tablet,Chewable 81 mg PO DAILY Changed atorvastatin 20 mg tablet 40 mg PO DAILY 30 Days Qty: 60 0RF Discharge Orders: Discharge Order (Routine); Ordered 04/23/22 Ordered By: Solange Sainz Other Ambulatory Orders: Basic Metabolic Panel (Routine) Timeframe: 3 Days Facility: [facility] - Location: Lab - Main Lab Ordered By: Solange Sainz DME: Jv (Order) Location: None Selected Ordered By: Solange Sainz Referrals: [facility] and [place] [Other] (Please contact [facility] and [place] about respite care. [phone].) Cathy Maher FNP [Nurse Practitioner] - 04/30/22 10:00 am Discharge Diet: Advance as tolerated Discharge Activity: Resume usual activity Patient Instructions: Folic Acid (By mouth), Cefpodoxime Proxetil (By mouth), Acute Kidney Injury (GEN), Urinary Tract Infection in Women (GEN), Opioid Safety Activity Restrictions/Additional Instructions: Follow up with PCP regarding renal lesion. It will need further workup with IV contrast CT scan on nonemergent basis. Please recheck labs and proceed accordingly. This study was not done during hospital stay due to kidney injury. A new PCP will setup for you at discharge. Walker will also be arranged. Case management aware. Please follow up with PCP within 4-7 days of discharge. Discharge Attestations Time Spent in Discharge Care*: less than 30 min Quality Metrics Clinical Quality Measures [ No reported AMI, CVA or VTE this stay] Coding Level of Care Code Acute Chg FW DC note Diagnoses DANIEL (acute kidney injury) N17.9 Altered mental status R41.82 Acute dehydration E86.0 UTI (urinary tract infection) N39.0
== END 2022-04-23 15:00 | disposition home or self-care (01) | DRG 683 ==
LOC: ER 16:35 → MEDSURG 17:08
PROVIDERS: Admitting Provider Family Medicine; Emergency Provider Emergency Medicine; Visit Provider Internal Medicine
DX: N17.9 Acute kidney failure, unspecified (principal); E46 Unspecified protein-calorie malnutrition; N39.0 Urinary tract infection, site not specified; F05 Delirium due to known physiological condition; I24.8 Other forms of acute ischemic heart disease; E86.0 Dehydration; E87.6 Hypokalemia; D64.89 Other specified anemias; N28.9 Disorder of kidney and ureter, unspecified; F03.90 Unspecified dementia, unspecified severity, without behavioral disturbance, psychotic disturbance, mood disturbance, and anxiety; R53.81 Other malaise; I10 Essential (primary) hypertension; E78.5 Hyperlipidemia, unspecified; R63.0 Anorexia; Z68.27 Body mass index [BMI] 27.0-27.9, adult; Z66 Do not resuscitate; Z86.73 Personal history of transient ischemic attack (TIA), and cerebral infarction without residual deficits
CPT/HCPCS: 36415; 70450; 71045; 74176; 80048; 80053; 80061; 81001; 82274; 82607; 82728; 82746; 83036; 83540; 83550; 83735; 84100; 84439; 84443; 84484; 85025; 92523; 92610; 93005; 94664; 96360; 96372; 97116; 97161; 97166; 97530; 97535; 99285; C9113; G0378; J0696; J1650; J7030; J7040

== ENCOUNTER → 2022-04-30 12:55 | Outpatient (BNVA) | payer MEDICARE, OTHER, MEDICAID, SELFPAY | PROVIDERS: PCP Nurse Practitioner Family; Visit Provider Nurse Practitioner Family | DX: E78.5 Hyperlipidemia, unspecified (principal); E55.9 Vitamin D deficiency, unspecified; I10 Essential (primary) hypertension; R41.82 Altered mental status, unspecified; N39.0 Urinary tract infection, site not specified; N17.9 Acute kidney failure, unspecified; N28.9 Disorder of kidney and ureter, unspecified; K21.9 Gastro-esophageal reflux disease without esophagitis; J44.9 Chronic obstructive pulmonary disease, unspecified; Z74.2 Need for assistance at home and no other household member able to render care; F03.90 Unspecified dementia, unspecified severity, without behavioral disturbance, psychotic disturbance, mood disturbance, and anxiety; R26.81 Unsteadiness on feet | CPT/HCPCS: 80053; 80061; 81003; 82306; 82607; 83735; 85025; 87086 ==

== ENCOUNTER → 2022-05-17 11:05 | Outpatient (BNVA) | payer MEDICARE, OTHER, MEDICAID, SELFPAY | PROVIDERS: PCP Nurse Practitioner Family; Visit Provider Urology | DX: N39.0 Urinary tract infection, site not specified (principal); N28.9 Disorder of kidney and ureter, unspecified | CPT/HCPCS: 81003; 99203 ==

== ENCOUNTER → 2022-05-29 14:03 | Outpatient (BNVA) | payer MEDICARE, OTHER, MEDICAID, SELFPAY | PROVIDERS: PCP Nurse Practitioner Family; Visit Provider Nurse Practitioner Family | DX: N18.9 Chronic kidney disease, unspecified (principal); N17.9 Acute kidney failure, unspecified | CPT/HCPCS: 80048 ==

== ENCOUNTER 2022-06-12 10:24 | Emergency (ER) | payer MEDICARE, OTHER, MEDICAID, SELFPAY ==
[2022-06-12 10:39] VITALS: BP 98/62; PULSE 74; RESP 14; TEMP 37.1; O2SAT 97; BMI 25.7
--- NOTE | 2022-06-12 10:45 | ECG_ITS ---
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 Measurements Intervals Marks Rate: 71 P: 27 [place]: 271 QRS: 12 QRSD: 96 T: 85 QT: 357 QTc: 390 Interpretive Statements SINUS RHYTHM WITH FIRST DEGREE AV BLOCK NONSPECIFIC ST & T-WAVE ABNORMALITY Compared to ECG 04/20/2022 21:09:18 No significant changes Electronically Signed On 06-12-2022 12:15:24 SASH REPAIRER by Debbie Dominguez M.D. [id number]
--- NOTE | 2022-06-12 10:46 | XRR_ITS ---
PROCEDURE INFORMATION: Exam: XR Chest Exam date and time: 06/12/2022 11:06 AM Age: 81 years old Clinical indication: Other: Weakness TECHNIQUE: Imaging protocol: Radiologic exam of the chest. Views: 1 view. COMPARISON: CR XR chest 1V portable [id number] 04/20/2022 1:47 PM FINDINGS: Lungs: No focal airspace disease. Pleural spaces: Unremarkable. No pleural effusion. No pneumothorax. Heart/Mediastinum: Cardiomediastinal silhouette is within normal limits. Bones/joints: Unremarkable. XR/XR chest 1V portable [id number] IMPRESSION: No acute cardiopulmonary abnormality.
--- NOTE | 2022-06-12 11:06 | ED_ITS ---
HPI - Weakness General: Chief complaint: Weakness Stated complaint: Weakness Time Seen by Provider: 06/12/22 10:45 History of Present Illness: Patient is a 81-year-old female comes to the ED with weakness. Patient has a past medical history of hypertension, hyperlipidemia, GERD, COPD. Patient has dementia and is a poor historian. daughter is helping provide history. Patient lives with her daughter and son-in-law and they help take care of her. At baseline she is able to do most of her ADLs herself and uses a walker with ambulation. Patient has not been drinking much fluids over the past week. Last night patient was considerably weaker and needing help with her transfers and going to the bathroom which is unusual for her. Denies any fevers, abdominal pain, nausea/vomiting or diarrhea. Daughter also said that patient has a lesion on the left kidney. Dr. Gagnon ordered an outpatient renal ultrasound for further evaluation of kidney lesion. They have not done the ultrasound yet. Associated symptoms: Denies chest pain, chills, dysuria, fever(s), headache(s), nausea or vomiting Review of Systems Const: Reports: fatigue (Generalized weakness); Denies: fever(s) or chills Eyes: Denies: change in vision or eye discomfort ENMT: Denies: throat pain, odynophagia, nasal discharge or nasal congestion Card: Denies: chest pain, palpitations, edema, swelling of feet/ankles, dyspnea on exertion or orthopnea Resp: Denies: dyspnea, productive cough or non-productive cough GI: Denies: abdominal pain, nausea, vomiting, diarrhea, constipation or hematochezia : Denies: flank pain, dysuria or hematuria Musc: Denies: neck pain, back pain or extremity swelling Skin/Breast: Denies: rash or new lesions Neuro: Denies: headache(s), numbness in extremities or weakness in extremities PFSH ED PFSH: Medical History Chronic UTI COPD (chronic obstructive pulmonary disease) Dementia GERD (gastroesophageal reflux disease) Hyperlipidemia Hypertension UTI (urinary tract infection) Vitamin D deficiency Surgical History No pertinent past surgical history Family History Mother , in 90s Healthy adult Father , in 90s CAD (coronary artery disease) Leukemia Social History Smoking and tobacco status: former smoker (QUIT 1 YEAR AGO) Quit status (tobacco): has quit using tobacco Year quit tobacco: 1 YEAR AGO Second hand smoke exposure: No Alcohol intake: never Household members: family Marital status: / Current occupational status: retired History of recent travel: No Physical Exam Const: COMMON NORMALS: alert EXAM LIMITATIONS: other limitations (Patient has dementia-poor historian.) GENERAL APPEARANCE: cooperative HENMT: COMMON NORMALS: normocephalic HEAD & SCALP: normocephalic MOUTH: Normal oral and palatal mucosa present and moist mucous membranes abnormal Details: parched THROAT: posterior oropharynx normal and uvula midline Neck/C-Spine: COMMON NORMALS: supple GENERAL: Yes normal visual inspection Resp: COMMON NORMALS: normal respiratory effort, No retractions, No use of accessory muscles and clear to auscultation bilaterally AUSCULTATION: clear to auscultation bilaterally Cardio: COMMON NORMALS: regular rate, regular rhythm, S1 normal heart sound present, S2 normal heart sound present, No gallops present (Cardio), No clicks present (Cardio), No murmurs present (Cardio) and Peripheral pulses 2+ throughout RATE: regular rate RHYTHM: regular rhythm HEART SOUNDS: S1 normal heart sound present and S2 normal heart sound present PERIPHERAL PULSES: Peripheral pulses 2+ throughout GI: COMMON NORMALS: Normal to inspection, nondistended, normoactive bowel sounds present, Soft to palpation, non-tender and no masses PALPATION: Yes Soft to palpation : COMMON NORMALS: Yes no CVA tenderness BLADDER/KIDNEY EXAM: Yes no CVA tenderness Back/Pelvis: COMMON NORMALS: no CVA tenderness Extremity: COMMON NORMALS: normal to inspection Neuro: SENSORIUM/ORIENTATION: Yes alert GAIT: Yes Normal gait present Skin: GENERAL SKIN EXAM: dry skin Course Vital Signs: Vital signs: Vital Signs Temperature 98.7 F 06/12/22 10:39 Pulse Rate 65 06/12/22 14:45 Respiratory Rate 17 06/12/22 14:45 Blood Pressure 126/58 06/12/22 14:45 Pulse Oximetry 93 06/12/22 14:45 Oxygen Delivery Me thod 06/12/22 11:16 MDM - Weakness Medical Decision Making Patient is a 81-year-old female comes to the ED with weakness. Patient has a past medical history of hypertension, hyperlipidemia, GERD, COPD. Patient has dementia. Daughters present helping provide history. Patient lives with her daughter and son-in-law and they help take care of her. At baseline she is able to do most of her ADLs herself and uses a walker with ambulation. Patient has not been drinking much fluids over the past week. Last night patient was considerably weaker and needing help with her transfers and going to the bathroom which is unusual for her. Denies any fevers, abdominal pain, nausea/vomiting or diarrhea. Daughter also said that patient has a lesion on the left kidney. Vital stable. Main exam finding is dry/parched oral mucous membranes. Rest of exam is benign. Potassium 3.0 and the rest of the labs were unremarkable. Troponin is negative. EKG showed no acute findings. Chest x-ray showed no acute findings. Renal ultrasound was performed and showed a slightly complex appearing left superior pole cystic lesion with some internal echogenic debris recommended 6-month follow-up ultrasound. Patient was given 1 L of IV fluids and dose of p.o. potassium and her symptoms improved she was able to easily transfer with minimal to no assistance. Daughter thought patient appears to be doing a lot better. She was stable for discharge home and diagnosed with dehydration and hypokalemia. Daughter was told to have patient follow-up with PCP within the next 2 to 3 days for reevaluation and to recheck potassium levels . Return to ED precautions given. Patient's daughter understood and agreed with plan. Lab Data I reviewed the patient's lab results. 06/12/22 11:03 06/12/22 11:03 Radiology Impressions Chest X-Ray 06/12/22 10:46 IMPRESSION: No acute cardiopulmonary abnormality. Renal Ultrasound 06/12/22 12:28 IMPRESSION: 1. Slightly complex appearing LEFT superior pole cystic lesion measuring 2.9 x 3.3 x 3.1 with some internal echogenic debris. Recommend 6 month follow-up ultrasound renal. 2. No hydronephrosis in either kidney. 3. Normal bladder. Laboratory Results WBC 12.4 10^3/uL (4.0-10.0) H 06/12/22 11:03 RBC 3.82 10^6/uL (4.1-5.3) L 06/12/22 11:03 Hgb 10.8 g/dL (11.5-15.3) L 06/12/22 11:03 Hct 34.5 % (37.0-47.0) L 06/12/22 11:03 MCV 90.3 fl (81-99) 06/12/22 11:03 MCH 28.3 pg (28.0-34.0) 06/12/22 11:03 MCHC 31.3 g/dL (30.0-36.0) 06/12/22 11:03 RDW 13.1 % (12.1-15.1) 06/12/22 11:03 Plt Count 204 10^3/cmm (130-400) 06/12/22 11:03 MPV 11.2 fL (7.4-10.4) H 06/12/22 11:03 Neut % (Auto) 72.4 % 06/12/22 11:03 Lymph % (Auto) 18.3 % 06/12/22 11:03 [place] % (Auto) 7.0 % 06/12/22 11:03 Eos % (Auto) 0.8 % 06/12/22 11:03 Baso % (Auto) 1.2 % 06/12/22 11:03 Neut # (Auto) 8.94 10^3/uL (1.8-7.7) H 06/12/22 11:03 Lymph # (Auto) 2.3 10^3/uL (0.8-4.8) 06/12/22 11:03 [place] # (Auto) 0.9 10^3/uL (0.2-0.9) 06/12/22 11:03 Eos # (Auto) 0.1 10^3/uL (0.0-0.8) 06/12/22 11:03 Baso # (Auto) 0.2 10^3/uL (0.0-0.1) H 06/12/22 11:03 Nucleated RBC % (auto) 0 % 06/12/22 11:03 Nucleated RBCs # 0.0 /100WBC 06/12/22 11:03 Sodium 141 mmol/L (136-145) 06/12/22 11:03 Potassium 3.0 mmol/L (3.5-5.1) L 06/12/22 11:03 Chloride 104 mmol/L (98-107) 06/12/22 11:03 Carbon Dioxide 23 mmol/L (22-29) 06/12/22 11:03 Anion Gap 17.0 (5-19) 06/12/22 11:03 BUN 50 mg/dL (8-23) H 06/12/22 11:03 Creatinine 2.0 mg/dL (0.5-0.9) H 06/12/22 11:03 GFR Calculation Not Reportable 06/12/22 11:03 Glucose 178 mg/dL (65-115) H 06/12/22 11:03 Calculated Osmolality 310 mOsm/kg (285-295) H 06/12/22 11:03 Calcium 9.2 mg/dL (8.5-10.5) 06/12/22 11:03 Total Bilirubin 0.3 mg/dL (0.15-1.2) 06/12/22 11:03 AST 10 U/L (0-32) 06/12/22 11:03 ALT 13 U/L (0-33) 06/12/22 11:03 Alkaline Phosphatase 112 U/L (35-105) H 06/12/22 11:03 Troponin T Baseline 37 ng/L (0-10) H 06/12/22 11:03 Troponin T 120 Minute 32.82 ng/L (0-10) H 06/12/22 13:26 Delta Troponin T -4.18 ABS# (0-10) L 06/12/22 13:26 NT-Pro-B Natriuret Pep 814 pg/mL (0-450) H 06/12/22 11:03 Total Protein 6.9 g/dL (6.6-8.7) 06/12/22 11:03 Albumin 3.7 g/dL (3.5-5.2) 06/12/22 11:03 Globulin 3.2 g/dL (1.3-4.6) 06/12/22 11:03 EKG Data EKG 1: EKG interpretation date: 06/12/22 Interpretation: [address] [place] [address] Electrocardiograph Report Signed Patient: Stefanie Black Unit #: [id number] : 1940 Age/Sex: 81 / F ADM Date: 06/12/22 Loc: ER Room/Bed: Attending Dr: Ordering Provider/Ordering MD: Edmundo Ford Date of Service: 06/12/22 Procedure(s): ECG 12 lead EKG Accession Number(s): [id number] Report Number: [id number] ? [facility] ? Test Date:? ? 2022-06-12 Pat Name: ? ? Stefanie Black ? Department: ? Patient ID: ? [id number] ? Room: ? Gender: ? ? ? Female ? 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 :? 1940 ? Requested By: Edmundo Ford Order Number: [id number]? Reading MD: ? Debbie Dominguez M.D. ? Measurements Intervals? [place]? Rate: ? 71 ? P:? 27 IA: ? 271? QRS:? 12 QRSD: ? 96 ? T:? 85 QT: ? 357? QTc:? 390? Interpretive Statements SINUS RHYTHM WITH FIRST DEGREE AV BLOCK NONSPECIFIC ST & T-WAVE ABNORMALITY Compared to ECG 04/20/2022 21:09:18 No significant changes Electronically Signed On 06-12-2022 12:15:24 FINAL DRESSING CUTTER by Debbie Dominguez M.D. [email or web address] [id number] Dictated By: Debbie Dominguez MD Signed By: Debbie Dominguez MD Signed Date/Time: 06/12/22 1216 DD/ 1054 Discharge Plan Discharge Patient Disposition: Home Clinical Impression: Dehydration, Hypokalemia Condition: Stable Prescriptions: No Action methenamine hippurate 1 gram tablet 1 g PO BID Qty: 60 6RF Rx Instructions: Take 1000 mg of vitamin C with each dose of methenamine Vitamin C 500 mg Tablet 1,000 mg PO BID folic acid 1 mg tablet 1 mg PO QAM atorvastatin 20 mg tablet 40 mg PO BEDTIME famotidine 20 mg tablet 20 mg PO QAM baclofen 10 mg tablet 10 mg PO BID amlodipine 10 mg tablet 10 mg PO QAM hydrochlorothiazide 25 mg tablet 25 mg PO QAM ergocalciferol (vitamin D2) 1,250 mcg (50,000 unit) capsule 1,250 mcg PO Q7D Rx Instructions: ON SUNDAYS Combivent Respimat 20-100 mcg/actuation mist 1 puff INHALATION Q4H PRN (Reason: Shortness Of Breath) ondansetron HCl 4 mg Tablet 4 mg PO Q6H PRN (Reason: Nausea) aspirin 81 mg Tablet,Chewable 81 mg PO QAM Discharge Orders: Discharge ED (Routine); Ordered 06/12/22 Ordered By: Edmundo Ford Referrals: Cathy Maher FNP [Primary Care Provider] - Discharge Diet: Regular Discharge Activity: Increase activity as tolerated Patient Instructions: Dehydration (ED), Hypokalemia (ED) Activity Restrictions/Additional Instructions: Follow-up with medical provider as directed in the next 2 to 3 days for reevaluation and to recheck potassium levels. Continue taking all home medications as previously prescribed. Return to the ER or your medical provider if condition worsens. Please read and understand discharge instructions. [facility]. Please realize this is an emergency room and that we are providing you with a medical screening exam and this may not be complete and all inclusive of all the testing and or work up that you may need to determine your ailment or severity of your illness. It is very important that you follow up as instructed or that you return to the Emergency Department should you have concerns or if your condition changes or worsens in any way. Coding Level of Care Code ED [place] Man for Joe Bowen Exam Comprehensive
[2022-06-12 11:10] LABS: Basophils # 0.2 10^3/uL (0.0-0.1); Basophils % 1.2 %; Eosinophils # 0.1 10^3/uL (0.0-0.8); Eosinophils % 0.8 %; Hematocrit 34.5 % (37.0-47.0); Hemoglobin 10.8 g/dL (11.5-15.3); Lymphocytes # 2.3 10^3/uL (0.8-4.8); Lymphocytes % 18.3 %; Mean Corpuscular HGB Conc 31.3 g/dL (30.0-36.0); Mean Corpuscular Hemoglobin 28.3 pg (28.0-34.0); Mean Corpuscular Volume 90.3 fl (81-99); Mean Platelet Volume 11.2 fL (7.4-10.4); Monocytes # 0.9 10^3/uL (0.2-0.9); Neutrophils # 8.94 10^3/uL (1.8-7.7); Neutrophils % 72.4 %; Nucleated Red Blood Cells % 0 %; Platelet Count 204 10^3/cmm (130-400); Red Blood Count 3.82 10^6/uL (4.1-5.3); Red Cell Distribution Width 13.1 % (12.1-15.1); White Blood Count 12.4 10^3/uL (4.0-10.0)
[2022-06-12 11:16] VITALS: BP 115/54; PULSE 71; RESP 16; O2SAT 96
[2022-06-12 11:35] LABS: Troponin(5th) Baseline 37 ng/L (0-10)
[2022-06-12] MEDS: sodium chloride 0.9% 500 ML 999 ML IV ×2 (11:38→13:49)
[2022-06-12 11:42] LABS: Alanine Aminotransferase 13 U/L (0-33); Albumin Level 3.7 g/dL (3.5-5.2); Alkaline Phosphatase 112 U/L (35-105); Aspartate Amino Transferase 10 U/L (0-32); Blood Urea Nitrogen 50 mg/dL (8-23); Calcium 9.2 mg/dL (8.5-10.5); Carbon Dioxide 23 mmol/L (22-29); Chloride 104 mmol/L (98-107); Globulin 3.2 g/dL (1.3-4.6); Glucose 178 mg/dL (65-115); NT Pro B Type Natriuretic Pept 814 pg/mL (0-450); Osmolality Calculated 310 mOsm/kg (285-295); Sodium 141 mmol/L (136-145); Total Bilirubin 0.3 mg/dL (0.15-1.2); Total Protein 6.9 g/dL (6.6-8.7)
[2022-06-12] MEDS: potassium chloride ER 20 mEq Tablet 40 MEQ PO (12:24)
--- NOTE | 2022-06-12 12:28 | US_ITS ---
WS: [id number] ULTRASOUND RENAL TECHNIQUE: Ultrasound examination of both kidneys. CLINICAL INFORMATION: Left renal mass, elevated creatinine COMPARISON: CT April 20, 2022 FINDINGS: Slightly complex appearing LEFT superior pole cystic lesion measuring 2.9 x 3.3 x 3.1 cm wi th a small amount of internal echogenic debris. RIGHT: Right kidney is normal in size and appearance. Echogenicity: Normal. Cortical thickness: 1.0 cm; Normal. Hydronephrosis: None. Perinephric fluid: None. Right kidney measures: 11.1 cm x 4.2 cm x 3.6 cm. LEFT: Left kidney is normal in size and appearance. Echogenicity: Normal. Cortical thickness: 1.0 cm; Normal. Hydronephrosis: None. Perinephric fluid: None. Left kidney measures: 9.9 cm x 3.1 cm x 4.1 cm. Normal visualized aorta. US/US renal BI* [id number] IMPRESSION: 1. Slightly complex appearing LEFT superior pole cystic lesion measuring 2.9 x 3.3 x 3.1 with some internal echogenic debris. Recommend 6 month follow-up ult rasound renal. 2. No hydronephrosis in either kidney. 3. Normal bladder.
--- NOTE | 2022-06-12 12:45 | ECG_ITS ---
[facility] Test Date: 2022-06-12 Pat Name: Stefanie Black Department: Room: Gender: Female Test Carrier: : 1940 Requested By: Edmundo Ford Order Number: [id number] Stacy MD: Jose Eduardo Cruz M.D. Measurements Intervals [place] Rate: 66 P: 55 PA: 305 QRS: 20 QRSD: 92 T: 91 QT: 315 QTc: 331 Interpretive Statements SINUS RHYTHM WITH FIRST DEGREE AV BLOCK NONSPECIFIC ST & T-WAVE ABNORMALITY Compared to ECG 06/12/2022 10:54:56 No significant changes Electronically Signed On 06-12-2022 18:06:31 DETECTIVE SUPERVISOR by Jose Eduardo Cruz M.D. [id number]
[2022-06-12 13:50] LABS: Troponin 5 2HR 32.82 ng/L (0-10)
[2022-06-12 13:53] LABS: Troponin 5 2HR Delta -4.18 ABS# (0-10)
[2022-06-12 14:45] VITALS: BP 126/58; PULSE 65; RESP 17; O2SAT 93
== END 2022-06-12 14:47 | disposition home or self-care (01) ==
PROVIDERS: Emergency Provider Physician Assistant; PCP Nurse Practitioner Family
DX: E86.0 Dehydration (principal); E87.6 Hypokalemia; Z79.82 Long term (current) use of aspirin; J44.9 Chronic obstructive pulmonary disease, unspecified; F03.90 Unspecified dementia, unspecified severity, without behavioral disturbance, psychotic disturbance, mood disturbance, and anxiety; E78.5 Hyperlipidemia, unspecified; I10 Essential (primary) hypertension; Z87.891 Personal history of nicotine dependence
CPT/HCPCS: 36415; 71045; 76770; 80053; 83880; 84484; 85025; 93005; 96360; 96361; 99285; J7040

== ENCOUNTER → 2022-06-17 17:43 | Outpatient (BNVA) | payer MEDICARE, OTHER, MEDICAID, SELFPAY | PROVIDERS: PCP Nurse Practitioner Family; Visit Provider Nurse Practitioner Family | DX: F03.90 Unspecified dementia, unspecified severity, without behavioral disturbance, psychotic disturbance, mood disturbance, and anxiety (principal); E55.9 Vitamin D deficiency, unspecified | CPT/HCPCS: 80053; 81003; 82306; 82607; 82746; 85025; 87077; 87086; 87184 ==

== ENCOUNTER 2022-06-18 01:00 | Outpatient (CLI) | payer MEDICARE, OTHER, MEDICAID, SELFPAY | END 2022-06-18 23:00 | disposition home or self-care (01) | LOC: RAD 07-15 14:50 | PROVIDERS: PCP Nurse Practitioner Family; Visit Provider Urology | DX: N28.9 Disorder of kidney and ureter, unspecified (principal); N39.0 Urinary tract infection, site not specified; F03.90 Unspecified dementia, unspecified severity, without behavioral disturbance, psychotic disturbance, mood disturbance, and anxiety | CPT/HCPCS: 81003; 99213 ==

== ENCOUNTER → 2022-06-26 12:22 | Outpatient (BNVA) | payer MEDICARE, OTHER, MEDICAID, SELFPAY | PROVIDERS: PCP Nurse Practitioner Family; Visit Provider Nurse Practitioner Family | DX: N17.9 Acute kidney failure, unspecified (principal); E87.6 Hypokalemia; F03.90 Unspecified dementia, unspecified severity, without behavioral disturbance, psychotic disturbance, mood disturbance, and anxiety; I10 Essential (primary) hypertension; N39.0 Urinary tract infection, site not specified; E78.5 Hyperlipidemia, unspecified | CPT/HCPCS: 80048 ==

== ENCOUNTER 2022-07-26 18:59 | Emergency (ER) | payer MEDICARE, OTHER, MEDICAID, SELFPAY ==
[2022-07-26 19:05] VITALS: BMI 25.4
--- NOTE | 2022-07-26 19:22 | XR_ITS ---
WS: [id number] PORTABLE CHEST HISTORY: shaky COMPARISON: 06/12/2022 Lungs are clear and well expanded. No pleural effusion or pneumothorax. Cardiac size: Normal. Mediastinum/Aorta: Atherosclerotic plaque thoracic aorta. No osseous abnormality seen. XR/XR chest 1V portable [id number] IMPRESSION: No acute cardiopulmonary disease.
[2022-07-26 19:24] VITALS: BP 142/81; PULSE 97; RESP 20; TEMP 37.2; O2SAT 96
--- NOTE | 2022-07-26 19:25 | W.ED.GENADLT ---
HPI - General Adult General: Chief complaint: General Medical Stated complaint: shaking Time Seen by Provider: 07/26/22 19:14 Source: patient and family Mode of arrival: ambulatory Limitations: other (dementia) History of Present Illness: See nursing assessment. Son and [id number] stated patient has had increased shakiness and urinary frequency over the past 2 to 3 days. Family has noticed that when she gets shaky or anxious she usually has urinary tract infection or is dehydrated. Patient's had only 1 bottle of water to drink today. Patient complained of mild right upper quadrant abdominal pain earlier but no pain now. Possible history includes dementia, frequent urinary tract infections, nonspecified mass on the right kidney, kidney stones. Family denies any previous surgeries. No fever. No back pain. No chest pain or shortness of breath. No flank pain. No rash Associated symptoms: Deny chest pain, dyspnea, headache(s), nausea, rash, palpitations or vomiting Review of Systems General: Reports: Other (Patient with dementia but able to give a decent history.) Const: Denies: fever(s) or chills Eyes: Denies: change in vision ENMT: Denies: throat pain Card: Denies: chest pain or palpitations Resp: Denies: dyspnea or wheezing GI: Reports: abdominal pain (Intermittent right upper quadrant abdominal pain); Denies: nausea, vomiting or diarrhea : Reports: urinary frequency; Denies: flank pain, dysuria or pelvic pain Musc: Denies: neck pain, back pain, extremity pain or extremity swelling Skin/Breast: Denies: rash, pruritus or erythema Neuro: Denies: headache(s) or numbness in extremities Psych: Reports: anxiety; Denies: depression or panic attacks Issac/Lymph: Denies: enlarged lymph nodes PFSH ED PFSH: Medical History Chronic UTI COPD (chronic obstructive pulmonary disease) Dementia GERD (gastroesophageal reflux disease) Hyperlipidemia Hypertension UTI (urinary tract infection) Vitamin D deficiency Surgical History No pertinent past surgical history Family History Mother , in 90s Healthy adult Father , in 90s CAD (coronary artery disease) Leukemia Social History Smoking and tobacco status: former smoker (QUIT 1 YEAR AGO) Quit status (tobacco): has quit using tobacco Year quit tobacco: 1 YEAR AGO Second hand smoke exposure: No Alcohol intake: never Household members: family Marital status: / Current occupational status: retired History of recent travel: No Supplemental [facility] Information: Family denies previous surgical history Physical Exam Const: COMMON NORMALS: no acute distress and well nourished GENERAL APPEARANCE: cooperative OTHER: Patient is alert to person. HENMT: COMMON NORMALS: normocephalic and atraumatic HEAD & SCALP: normocephalic and atraumatic FACE & SINUS: normal facial exam Eye: COMMON NORMALS: EOMs intact bilaterally Neck/C-Spine: COMMON NORMALS: full ROM, no lymphadenopathy, supple and no meningeal signs GENERAL: Yes normal visual inspection Lymph: LYMPHATIC: no lymphadenopathy noted Chest: COMMONS NORMALS: normal inspection of the chest and normal palpation of entire chest wall CHEST: No Ecchymosis present and No rash Resp: COMMON NORMALS: normal respiratory effort, No retractions and clear to auscultation bilaterally EFFORT & INSPECTION: No respiratory distress AUSCULTATION: clear to auscultation bilaterally Cardio: COMMON NORMALS: regular rate, regular rhythm and Peripheral pulses 2+ throughout JUGULAR VENOUS DISTENTION: no JVD RATE: regular rate RHYTHM: regular rhythm PERIPHERAL PULSES: Peripheral pulses 2+ throughout GI: COMMON NORMALS: Normal to inspection, nondistended, normoactive bowel sounds present and non-tender OTHER: No abdominal pain. No masses palpated. : COMMON NORMALS: Yes no CVA tenderness BLADDER/KIDNEY EXAM: Yes no CVA tenderness Back/Pelvis: COMMON NORMALS: no CVA tenderness Extremity: COMMON NORMALS: normal to inspection, full ROM and capillary refill normal Neuro: COMMON NORMALS: CN's II-XII intact bilaterally, no focal motor deficits and no sensory deficits noted MENINGEAL SIGNS: Yes no meningeal signs OTHER: Patient is oriented to person. Speech is clear. Patient able answer questions well. Psych: OTHER: Moderate dementia. Skin: COMMON NORMALS: no rashes or lesions noted and no wounds GENERAL SKIN EXAM: no rashes or lesions noted Course Vital Signs: Vital signs: Vital Signs Temperature 98.9 F 07/26/22 19:24 Pulse Rate 70 07/26/22 22:00 Respiratory Rate 18 07/26/22 22:00 Blood Pressure 139/69 07/26/22 22:00 Pulse Oximetry 94 07/26/22 22:00 Oxygen Delivery Me thod 07/26/22 22:00 MDM - General Adult Medical Decision Making Possible renal colic versus biliary colic versus urinary tract infection. Urinalysis shows 1+ ketones but otherwise has normal specific gravity and no evidence of urinary tract infection. 2023: Blood pressure 155/71 heart rate 71. 2130: No evidence of infection. Mild dehydration. Patient has baseline chronic kidney disease. Family states patient has only had 1 bottle water to drink today. We will give a liter of saline and discharge patient home Lab Data 07/26/22 19:45 07/26/22 19:45 Radiology Impressions Chest X-Ray 07/26/22 19:22 IMPRESSION: No acute cardiopulmonary disease. Laboratory Results WBC 6.2 10^3/uL (4.0-10.0) 07/26/22 19:45 RBC 3.54 10^6/uL (4.1-5.3) L 07/26/22 19:45 Hgb 10.0 g/dL (11.5-15.3) L 07/26/22 19:45 Hct 31.7 % (37.0-47.0) L 07/26/22 19:45 MCV 89.5 fl (81-99) 07/26/22 19:45 MCH 28.2 pg (28.0-34.0) 07/26/22 19:45 MCHC 31.5 g/dL (30.0-36.0) 07/26/22 19:45 RDW 14.3 % (12.1-15.1) 07/26/22 19:45 Plt Count 205 10^3/cmm (130-400) 07/26/22 19:45 MPV 10.9 fL (7.4-10.4) H 07/26/22 19:45 Neut % (Auto) 57.5 % 07/26/22 19:45 Lymph % (Auto) 30.9 % 07/26/22 19:45 [place] % (Auto) 7.1 % 07/26/22 19:45 Eos % (Auto) 1.8 % 07/26/22 19:45 Baso % (Auto) 2.4 % 07/26/22 19:45 Neut # (Auto) 3.58 10^3/uL (1.8-7.7) 07/26/22 19:45 Lymph # (Auto) 1.9 10^3/uL (0.8-4.8) 07/26/22 19:45 [place] # (Auto) 0.4 10^3/uL (0.2-0.9) 07/26/22 19:45 Eos # (Auto) 0.1 10^3/uL (0.0-0.8) 07/26/22 19:45 Baso # (Auto) 0.2 10^3/uL (0.0-0.1) H 07/26/22 19:45 Nucleated RBC % (auto) 0 % 07/26/22 19:45 Nucleated RBCs # 0.0 /100WBC 07/26/22 19:45 Sodium 136 mmol/L (136-145) 07/26/22 19:45 Potassium 4.2 mmol/L (3.5-5.1) 07/26/22 19:45 Chloride 102 mmol/L (98-107) 07/26/22 19:45 Carbon Dioxide 23 mmol/L (22-29) 07/26/22 19:45 Anion Gap 15.2 (5-19) 07/26/22 19:45 BUN 21 mg/dL (8-23) 07/26/22 19:45 Creatinine 1.8 mg/dL (0.5-0.9) H 07/26/22 19:45 GFR Calculation Not Reportable 07/26/22 19:45 Glucose 101 mg/dL (65-115) 07/26/22 19:45 Calculated Osmolality 285 mOsm/kg (285-295) 07/26/22 19:45 Lactic Acid 1.4 mmol/L (0.5-2.2) 07/26/22 19:45 Calcium 9.3 mg/dL (8.5-10.5) 07/26/22 19:45 Total Bilirubin 0.4 mg/dL (0.15-1.2) 07/26/22 19:45 AST 14 U/L (0-32) 07/26/22 19:45 ALT 14 U/L (0-33) 07/26/22 19:45 Alkaline Phosphatase 95 U/L (35-105) 07/26/22 19:45 Total Protein 7.1 g/dL (6.6-8.7) 07/26/22 19:45 Albumin 3.9 g/dL (3.5-5.2) 07/26/22 19:45 Globulin 3.2 g/dL (1.3-4.6) 07/26/22 19:45 Urine Color Yellow (Yellow) 07/26/22 19:08 Urine Appearance Clear (CLEAR) 07/26/22 19:08 Urine pH 7 (5-7) 07/26/22 19:08 Ur Specific [place] 1.010 (1.005-1.030) 07/26/22 19:08 Urine Protein Neg (Negative) 07/26/22 19:08 Urine Glucose (UA) Norm (Normal) 07/26/22 19:08 Urine Ketones 1+ (Negative) H 07/26/22 19:08 Urine Blood Neg (Negative) 07/26/22 19:08 Urine Nitrate Negative (Negative) 07/26/22 19:08 Urine Bilirubin Neg (Negative) 07/26/22 19:08 Urine Urobilinogen Norm mg/dL (Negative) 07/26/22 19:08 Ur Leukocyte Esterase Negative (Negative) 07/26/22 19:08 Urine RBC 0-4 /hpf (0-2) H 07/26/22 19:08 Urine WBC 0-4 /hpf (0-5) H 07/26/22 19:08 Ur Squamous Epith Cells 0-4 /hpf (0-5) H 07/26/22 19:08 Amorphous Sediment Not Reportable 07/26/22 19:08 Urine Bacteria Trace /hpf (NONE) 07/26/22 19:08 Influenza Type A Ag negative (Negative) 07/26/22 19:45 Influenza Type B Ag negative (Negative) 07/26/22 19:45 SARS-CoV-2 Ag (Rapid) negative (Negative) 07/26/22 19:45 Imaging Data CXR: My impression: Nothing acute. Patient has atherosclerosis of the aorta. No effusions or infiltrates. No pneumothorax. No rib fracture seen. Radiologist's impression: Ordering Provider/Ordering MD: Sean Almeida MD Date of Service: 07/26/22 Procedure(s): XR chest 1V portable [id number] Accession Number(s): [id number] Report Number: [id number] WS: [id number] PORTABLE CHEST HISTORY: shaky COMPARISON: 06/12/2022 Lungs are clear and well expanded. No pleural effusion or pneumothorax. Cardiac size: Normal. Mediastinum/Aorta: Atherosclerotic plaque thoracic aorta. No osseous abnormality seen. XR/XR chest 1V portable [id number] IMPRESSION: ? No acute cardiopulmonary disease. ? ? ? Dictated By: Berta Woodall DO Signed By: Berta Woodall DO Signed Date/Time: 07/26/222025 EKG Data EKG 1: I personally reviewed and interpreted this EKG as follows: EKG interpretation date: 07/26/22 EKG interpretation time: 19:44 Prior EKG tracings: not available for review Interpretation: Impression normal sinus rhythm with heart rate of 79. Patient has a tremor. Normal axis. Normal QRS. Normal TN interval, normal QT interval. Normal P waves, normal T waves. Normal ST segment. Normal EKG except for underlying tremor Computer generated interpretation: Chest X-Ray 07/26/22 19:22 IMPRESSION: No acute cardiopulmonary disease. Discharge Plan Discharge Patient Disposition: Home Clinical Impression: Mild dehydration Dementia Qualifiers: Dementia type: unspecified type Dementia severity: moderate Dementia behavioral or psychological symptom: without behavioral, psychotic, or mood disturbance or anxiety Qualified Code(s): F03.B0 - Unspecified dementia, moderate, without behavioral disturbance, psychotic disturbance, mood disturbance, and anxiety CKD (chronic kidney disease) Qualifiers: Chronic kidney disease stage: stage 3 (moderate) Chronic kidney disease stage 3 subtype: unspecified whether 3a or 3b Qualified Code(s): N18.30 - Chronic kidney disease, stage 3 unspecified Condition: Stable Prescriptions: No Action donepezil [Aricept] 5 mg tablet 5 mg PO DAILY Qty: 30 2RF methenamine hippurate 1 gram tablet 1 g PO BID Qty: 60 6RF Rx Instructions: Take 1000 mg of vitamin C with each dose of methenamine sulfamethoxazole-trimethoprim 200-40 mg/5 mL suspension 20 ml PO BID 7 Days Qty: 280 0RF Rx Instructions: hold methenamine hippurate ascorbic acid (vitamin C) 500 mg tablet,chewable 1 g PO BID 90 Days Qty: 360 3RF atorvastatin 20 mg tablet 40 mg PO BEDTIME Qty: 180 1RF famotidine 20 mg tablet 20 mg PO QAM Qty: 90 1RF hydrochlorothiazide 25 mg tablet 25 mg PO QAM Qty: 90 1RF amlodipine 10 mg tablet 10 mg PO QAM Qty: 90 1RF Combivent Respimat 20-100 mcg/actuation mist 1 puff INHALATION Q4H PRN (Reason: Shortness Of Breath) Qty: 4 2RF sulfamethoxazole-trimethoprim [Bactrim DS] 800-160 mg tablet 1 tab PO BID 7 Days Qty: 14 0RF Rx Instructions: hold methenamine hippurate while on this antibiotic ergocalciferol (vitamin D2) 1,250 mcg (50,000 unit) capsule See Rx Instructions .ROUTE .COMPLEX Qty: 4 2RF Dose Instruction: TAKE 1 CAPSULE BY MOUTH ONCE A WEEK ON SUNDAYS Rx Instructions: TAKE 1 CAPSULE BY MOUTH ONCE A WEEK ON SUNDAYS folic acid 1 mg tablet 1 mg PO QAM Qty: 90 1RF baclofen 10 mg tablet 10 mg PO BID Qty: 60 1RF ondansetron HCl 4 mg Tablet 4 mg PO Q6H PRN (Reason: Nausea) aspirin 81 mg Tablet,Chewable 81 mg PO QAM Discharge Orders: Discharge ED (Routine); Ordered 07/26/22 Ordered By: Sean Almeida Referrals: Cathy Maher FNP [Primary Care Provider] - 07/30/22 Discharge Diet: Usual diet Discharge Activity: Resume usual activity Patient Instructions: Dehydration (ED), Dementia (ED), Opioid Safety, Pain Management Activity Restrictions/Additional Instructions: No evidence of infection. Drink plenty of fluids. Stay hydrated. Follow-up with family doctor early this week. Coding Level of Care Code ED Subway Train Driver for Chg Fwd History Comprehensive Exam Comprehensive Medical Decision Making Moderate Complexity
--- NOTE | 2022-07-26 19:39 | ECG_ITS ---
[facility] Test Date: 2022-07-26 Pat Name: Stefanie Black Department: Room: Gender: Female Digital Manager: : 1940 Requested By: Sean Camargo Order Number: [id number] Regis MD: Debbie Dominguez M.D. Measurements Intervals [place] Rate: 79 P: 0 RI: 0 QRS: 16 QRSD: 94 T: 22 QT: 376 QTc: 432 Interpretive Statements SUPRAVENTRICULAR RHYTHM ABNORMAL RHYTHM ECG Compared to ECG 06/12/2022 13:09:06 Supraventricular rhythm now present Sinus rhythm no longer present First degree AV block no longer present T-wave abnormality no longer present Electronically Signed On 07-27-2022 7:43:50 NET DEVELOPER ARCHITECT by Debbie Dominguez M.D. [id number]
[2022-07-26 20:03] VITALS: BP 155/71; PULSE 74; RESP 20; O2SAT 95
[2022-07-26 20:17] LABS: Bilirubin Urine Neg (Negative); Blood Urine Neg (Negative); Glucose Urine UA Norm (Normal); Ketones Urine 1+ (Negative); Leukocyte Esterase Urine Negative (Negative); Nitrate Urine Negative (Negative); Protein Urine Neg (Negative); RBC Urine 0-4 /hpf (0-2); Squamous Epithelial Cell Urine 0-4 /hpf (0-5); Urine Appearance Clear (CLEAR); Urine Color Yellow (Yellow); Urobilinogen Urine Norm (Negative); WBC Urine 0-4 /hpf (0-5); pH Urine 7 (5-7)
[2022-07-26 20:18] LABS: Add Urine Culture? No; Bacteria Urine TRACE /hpf
[2022-07-26 20:19] LABS: Basophils # 0.2 10^3/uL (0.0-0.1); Basophils % 2.4 %; Eosinophils # 0.1 10^3/uL (0.0-0.8); Eosinophils % 1.8 %; Hematocrit 31.7 % (37.0-47.0); Lymphocytes # 1.9 10^3/uL (0.8-4.8); Lymphocytes % 30.9 %; Mean Corpuscular HGB Conc 31.5 g/dL (30.0-36.0); Mean Corpuscular Hemoglobin 28.2 pg (28.0-34.0); Mean Corpuscular Volume 89.5 fl (81-99); Mean Platelet Volume 10.9 fL (7.4-10.4); Monocytes # 0.4 10^3/uL (0.2-0.9); Monocytes % 7.1 %; Neutrophils # 3.58 10^3/uL (1.8-7.7); Neutrophils % 57.5 %; Nucleated Red Blood Cells % 0 %; Platelet Count 205 10^3/cmm (130-400); Red Blood Count 3.54 10^6/uL (4.1-5.3); Red Cell Distribution Width 14.3 % (12.1-15.1); White Blood Count 6.2 10^3/uL (4.0-10.0)
[2022-07-26 20:52] LABS: Influenza A by IFA negative (Negative); Influenza B by IFA negative (Negative)
[2022-07-26 21:04] LABS: Lactic Sepsis W/Reflex 1.4 mmol/L (0.5-2.2)
[2022-07-26 21:05] LABS: Alanine Aminotransferase 14 U/L (0-33); Albumin Level 3.9 g/dL (3.5-5.2); Alkaline Phosphatase 95 U/L (35-105); Anion Gap 15.2 (5-19); Aspartate Amino Transferase 14 U/L (0-32); Blood Urea Nitrogen 21 mg/dL (8-23); Calcium 9.3 mg/dL (8.5-10.5); Carbon Dioxide 23 mmol/L (22-29); Chloride 102 mmol/L (98-107); Globulin 3.2 g/dL (1.3-4.6); Glucose 101 mg/dL (65-115); Osmolality Calculated 285 mOsm/kg (285-295); Potassium 4.2 mmol/L (3.5-5.1); Sodium 136 mmol/L (136-145); Total Bilirubin 0.4 mg/dL (0.15-1.2); Total Protein 7.1 g/dL (6.6-8.7)
[2022-07-26 21:08] LABS: SARS Covid-2 Antigen negative (Negative)
[2022-07-26] MEDS: sodium chloride 0.9% 1,000 ML 999 ML IV (21:47)
[2022-07-26 22:00] VITALS: BP 139/69; PULSE 70; RESP 18; O2SAT 94
[2022-07-26 23:01] VITALS: BP 135/69; PULSE 75; RESP 16; O2SAT 95
== END 2022-07-26 23:04 | disposition home or self-care (01) ==
PROVIDERS: Emergency Provider Family Medicine; PCP Nurse Practitioner Family
DX: F03.B0 Unspecified dementia, moderate, without behavioral disturbance, psychotic disturbance, mood disturbance, and anxiety (principal); E86.0 Dehydration; I12.9 Hypertensive chronic kidney disease with stage 1 through stage 4 chronic kidney disease, or unspecified chronic kidney disease; N18.30 Chronic kidney disease, stage 3 unspecified; Z79.82 Long term (current) use of aspirin; Z20.822 Contact with and (suspected) exposure to COVID-19; Z87.891 Personal history of nicotine dependence; J44.9 Chronic obstructive pulmonary disease, unspecified; E78.5 Hyperlipidemia, unspecified
CPT/HCPCS: 71045; 80053; 81001; 83605; 85025; 87040; 87426; 87804; 93005; 96360; 99285; J7030

== ENCOUNTER → 2022-07-30 13:38 | Outpatient (BNVA) | payer MEDICARE, OTHER, MEDICAID, SELFPAY | PROVIDERS: PCP Nurse Practitioner Family; Visit Provider Nurse Practitioner Family | DX: N39.0 Urinary tract infection, site not specified (principal); F03.B0 Unspecified dementia, moderate, without behavioral disturbance, psychotic disturbance, mood disturbance, and anxiety; F41.9 Anxiety disorder, unspecified; F32.A Depression, unspecified | CPT/HCPCS: 81003 ==

== ENCOUNTER → 2022-09-02 17:23 | Outpatient (BNVA) | payer MEDICARE, OTHER, MEDICAID, SELFPAY | PROVIDERS: PCP Nurse Practitioner Family; Visit Provider Nurse Practitioner Family | DX: G62.9 Polyneuropathy, unspecified (principal); E78.5 Hyperlipidemia, unspecified | CPT/HCPCS: 80053; 82607; 82746; 83735; 84443; 85025 ==

== ENCOUNTER → 2022-10-14 15:52 | Outpatient (BNVA) | payer MEDICARE, OTHER, MEDICAID, SELFPAY | PROVIDERS: PCP Nurse Practitioner Family; Visit Provider Nurse Practitioner Family | DX: R39.9 Unspecified symptoms and signs involving the genitourinary system (principal); N39.0 Urinary tract infection, site not specified | CPT/HCPCS: 81003; 87077; 87086; 87184 ==

== ENCOUNTER 2022-10-30 15:30 | Emergency (ER) | payer MEDICARE, OTHER, MEDICAID, SELFPAY ==
[2022-10-30 15:47] VITALS: BP 109/62; PULSE 53; TEMP 36.6; O2SAT 98; BMI 24.0
[2022-10-30 16:16] LABS: Basophils # 0.1 10^3/uL (0.0-0.1); Basophils % 2.5 %; Eosinophils # 0.2 10^3/uL (0.0-0.8); Eosinophils % 3.3 %; Hematocrit 33.8 % (37.0-47.0); Hemoglobin 10.7 g/dL (11.5-15.3); Lymphocytes # 2.2 10^3/uL (0.8-4.8); Lymphocytes % 40.3 %; Mean Corpuscular HGB Conc 31.7 g/dL (30.0-36.0); Mean Corpuscular Hemoglobin 28.5 pg (28.0-34.0); Mean Corpuscular Volume 90.1 fl (81-99); Mean Platelet Volume 10.9 fL (7.4-10.4); Monocytes # 0.4 10^3/uL (0.2-0.9); Monocytes % 7.6 %; Neutrophils # 2.55 10^3/uL (1.8-7.7); Neutrophils % 46.1 %; Nucleated Red Blood Cells % 0 %; Platelet Count 174 10^3/cmm (130-400); Red Blood Count 3.75 10^6/uL (4.1-5.3); Red Cell Distribution Width 13.9 % (12.1-15.1); White Blood Count 5.5 10^3/uL (4.0-10.0)
--- NOTE | 2022-10-30 16:22 | ED_ITS ---
HPI - Altered Mental Status General: Chief Complaint: Altered Mental Status Stated Complaint: AMS Time Seen by Provider: 10/30/22 16:15 Source: patient Mode of arrival: ambulatory History of Present Illness: 82-year-old female who has a history of dementia. Family feels she has worsened from her baseline. She has not been eating well earlier today she was unable to speak that was transient and has resolved for the most part she is responds with a year of her birthdate rather than how old she is when asked. She has not had any fever sweats or chills denies any specific pain. complaint: altered mental status Review of Systems General: Reports: ROS unobtainable due to mental status (dementia) PFSH ED PFSH: Medical History Anxiety and depression Chronic UTI COPD (chronic obstructive pulmonary disease) Dementia GERD (gastroesophageal reflux disease) Hyperlipidemia Hypertension UTI (urinary tract infection) Vitamin D deficiency Surgical History No pertinent past surgical history Family History Mother , in 90s Healthy adult Father , in 90s CAD (coronary artery disease) Leukemia Social History Smoking and tobacco status: former smoker Quit status (tobacco): has quit using tobacco Year quit tobacco: 1 YEAR AGO Second hand smoke exposure: No Alcohol intake: never Substance/Drug Use: never Household members: family Marital status: / Current occupational status: retired Physical Exam Const: GENERAL APPEARANCE: cooperative HENMT: COMMON NORMALS: normocephalic and atraumatic HEAD & SCALP: normoce phalic and atraumatic Resp: COMMON NORMALS: normal respiratory effort, No retractions, No use of accessory muscles and clear to auscultation bilaterally AUSCULTATION: clear to auscultation bilaterally Cardio: COMMON NORMALS: regular rate, regular rhythm and No murmurs present (Cardio) RATE: regular rate RHYTHM: regular rhythm GI: COMMON NORMALS: Soft to palpation and No hepatosplenomegaly present PALPATION: Yes Soft to palpation, No Tenderness to palpation present (GI), No Guarding due to palpation present (GI) and Yes No hepatosplenomegaly present : COMMON NORMALS: Yes no CVA tenderness BLADDER/KIDNEY EXAM: Yes no CVA tenderness Back/Pelvis: COMMON NORMALS: no CVA tenderness Course Vital Signs: Vital signs: Vital Signs Temperature 98 F 10/30/22 15:47 Pulse Rate 49 L 10/30/22 19:00 Respiratory Rate 16 10/30/22 19:00 Blood Pressure 151/56 10/30/22 19:00 Pulse Oximetry 97 10/30/22 19:00 Oxygen Delivery Me thod Room Air 10/30/22 16:33 MDM - Altered Mental Status Medical Decision Making Mild acute cystitis. No leukocytosis. Creatinine is elevated reviewing her old creatinine she has had some variation. She is given IV fluids. I still follow- up in the next few days. CT head no acute changes. Should recheck with primary care doctor in the next 4 to 5 days. Lab Data 10/30/22 16:08 10/30/22 16:[address] 10/30/22 16:38 IMPRESSION: No acute intracranial abnormality. Laboratory Results WBC 5.5 10^3/uL (4.0-10.0) 10/30/22 16:08 RBC 3.75 10^6/uL (4.1-5.3) L 10/30/22 16:08 Hgb 10.7 g/dL (11.5-15.3) L 10/30/22 16:08 Hct 33.8 % (37.0-47.0) L 10/30/22 16:08 MCV 90.1 fl (81-99) 10/30/22 16:08 MCH 28.5 pg (28.0-34.0) 10/30/22 16:08 MCHC 31.7 g/dL (30.0-36.0) 10/30/22 16:08 RDW 13.9 % (12.1-15.1) 10/30/22 16:08 Plt Count 174 10^3/cmm (130-400) 10/30/22 16:08 MPV 10.9 fL (7.4-10.4) H 10/30/22 16:08 Neut % (Auto) 46.1 % 10/30/22 16:08 Lymph % (Auto) 40.3 % 10/30/22 16:08 [place] % (Auto) 7.6 % 10/30/22 16:08 Eos % (Auto) 3.3 % 10/30/22 16:08 Baso % (Auto) 2.5 % 10/30/22 16:08 Neut # (Auto) 2.55 10^3/uL (1.8-7.7) 10/30/22 16:08 Lymph # (Auto) 2.2 10^3/uL (0.8-4.8) 10/30/22 16:08 [place] # (Auto) 0.4 10^3/uL (0.2-0.9) 10/30/22 16:08 Eos # (Auto) 0.2 10^3/uL (0.0-0.8) 10/30/22 16:08 Baso # (Auto) 0.1 10^3/uL (0.0-0.1) 10/30/22 16:08 Nucleated RBC % (auto) 0 % 10/30/22 16:08 Nucleated RBCs # 0.0 /100WBC 10/30/22 16:08 Sodium 134 mmol/L (136-145) L 10/30/22 16:08 Potassium 4.3 mmol/L (3.5-5.1) 10/30/22 16:08 Chloride 100 mmol/L (98-107) 10/30/22 16:08 Carbon Dioxide 21 mmol/L (22-29) L 10/30/22 16:08 Anion Gap 17.3 (5-19) 10/30/22 16:08 BUN 72 mg/dL (8-23) H 10/30/22 16:08 Creatinine 3.1 mg/dL (0.5-0.9) H 10/30/22 16:08 GFR Calculation Not Reportable 10/30/22 16:08 Glucose 99 mg/dL (65-115) 10/30/22 16:08 Calculated Osmolality 299 mOsm/kg (285-295) H 10/30/22 16:08 Calcium 9.2 mg/dL (8.5-10.5) 10/30/22 16:08 Total Bilirubin 0.2 mg/dL (0.15-1.2) 10/30/22 16:08 AST 15 U/L (0-32) 10/30/22 16:08 ALT 18 U/L (0-33) 10/30/22 16:08 Alkaline Phosphatase 104 U/L (35-105) 10/30/22 16:08 Total Protein 6.9 g/dL (6.6-8.7) 10/30/22 16:08 Albumin 3.7 g/dL (3.5-5.2) 10/30/22 16:08 Globulin 3.2 g/dL (1.3-4.6) 10/30/22 16:08 Urine Color Yellow (Yellow) 10/30/22 16:44 Urine Appearance Hazy (CLEAR) A 10/30/22 16:44 Urine pH 5 (5-7) 10/30/22 16:44 Ur Specific [place] 1.015 (1.005-1.030) 10/30/22 16:44 Urine Protein Neg (Negative) 10/30/22 16:44 Urine Glucose (UA) Norm (Normal) 10/30/22 16:44 Urine Ketones Negative (Negative) 10/30/22 16:44 Urine Blood 2+ (Negative) H 10/30/22 16:44 Urine Nitrate Negative (Negative) 10/30/22 16:44 Urine Bilirubin Neg (Negative) 10/30/22 16:44 Urine Urobilinogen Neg mg/dL (Negative) 10/30/22 16:44 Ur Leukocyte Esterase 2+ (Negative) H 10/30/22 16:44 Urine RBC >100 /hpf (0-2) H 10/30/22 16:44 Urine WBC >100 /hpf (0-5) H 10/30/22 16:44 Ur Squamous Epith Cells 0-4 /hpf (0-5) H 10/30/22 16:44 Amorphous Sediment Not Reportable 10/30/22 16:44 Urine Bacteria 1+ /hpf (NONE) H 10/30/22 16:44 Discharge Plan Discharge Patient Disposition: Home Clinical Impression: Cystitis, Dementia Condition: Stable Prescriptions: New Cipro 500 mg tablet 500 mg PO BID Qty: 14 0RF No Action methenamine hippurate 1 gram tablet 1 g PO BID Qty: 60 6RF Rx Instructions: Take 1000 mg of vitamin C with each dose of methenamine ascorbic acid (vitamin C) 500 mg tablet,chewable 1 g PO BID 90 Days Qty: 360 3RF atorvastatin 20 mg tablet 40 mg PO BEDTIME Qty: 180 1RF duloxetine 20 mg capsule,delayed release(DR/EC) 20 mg PO DAILY Qty: 30 2RF famotidine 20 mg tablet 20 mg PO QAM Qty: 90 1RF amlodipine 10 mg tablet 10 mg PO QAM Qty: 90 1RF ergocalciferol (vitamin D2) 1,250 mcg (50,000 unit) capsule See Rx Instructions .ROUTE .COMPLEX Qty: 4 2RF Dose Instruction: TAKE 1 CAPSULE BY MOUTH ONCE A WEEK ON SUNDAYS Rx Instructions: TAKE 1 CAPSULE BY MOUTH ONCE A WEEK ON SUNDAYS folic acid 1 mg tablet 1 mg PO QAM Qty: 90 1RF Combivent Respimat 20-100 mcg/actuation mist See Rx Instructions .ROUTE .COMPLEX Qty: 4 2RF Dose Instruction: INHALE 1 PUFF BY MOUTH EVERY 4 HOURS NEEDED FOR SHORTNESS OF BREATH Rx Instructions: INHALE 1 PUFF BY MOUTH EVERY 4 HOURS NEEDED FOR SHORTNESS OF BREATH baclofen 10 mg tablet See Rx Instructions .ROUTE .COMPLEX Qty: 60 0RF Dose Instruction: Take 1 tablet by mouth twice daily Rx Instructions: Take 1 tablet by mouth twice daily ondansetron HCl 4 mg Tablet 4 mg PO Q6H PRN (Reason: Nausea) aspirin 81 mg Tablet,Chewable 81 mg PO QAM citalopram 10 mg Tablet 10 mg PO DAILY Lyrica 75 mg Capsule 75 mg PO BID Discharge Orders: Discharge ED (Routine); Ordered 10/30/22 Ordered By: Cem Deejsus Referrals: Cathy Maher FNP [Primary Care Provider] - Discharge Diet: Usual diet Discharge Activity: Increase activity as tolerated Patient Instructions: Opioid Safety, Pain Management Activity Restrictions/Additional Instructions: You were seen today for confusion. This is likely brought about by bladder infection. Patients with dementia are more susceptible to increased confusion even with mild infections. Your white count is not significantly elevated. You are given your first dose of antibiotics in the emergency room you to start the oral antibiotics tomorrow 1 pill twice a day for 7 days. If you have worsening of symptoms or fever return to the emergency room Coding Level of Care Code ED Chief Clinical Officer for Joe Bowen
[2022-10-30 16:33] VITALS: BP 116/53; PULSE 52; O2SAT 100
[2022-10-30 16:38] LABS: Alanine Aminotransferase 18 U/L (0-33); Albumin Level 3.7 g/dL (3.5-5.2); Alkaline Phosphatase 104 U/L (35-105); Anion Gap 17.3 (5-19); Aspartate Amino Transferase 15 U/L (0-32); Blood Urea Nitrogen 72 mg/dL (8-23); Calcium 9.2 mg/dL (8.5-10.5); Carbon Dioxide 21 mmol/L (22-29); Chloride 100 mmol/L (98-107); Globulin 3.2 g/dL (1.3-4.6); Glucose 99 mg/dL (65-115); Osmolality Calculated 299 mOsm/kg (285-295); Potassium 4.3 mmol/L (3.5-5.1); Sodium 134 mmol/L (136-145); Total Bilirubin 0.2 mg/dL (0.15-1.2); Total Protein 6.9 g/dL (6.6-8.7)
--- NOTE | 2022-10-30 16:38 | CTR_ITS ---
PROCEDURE INFORMATION: Exam: CT Head Without Contrast Exam date and time: 10/30/2022 5:07 PM Age: 82 years old Clinical indication: Altered mental status/memory loss; Additional info: TIA TECHNIQUE: Imaging protocol: Computed tomography of the head without contrast. Radiation optimization: All CT scans at this facility use at least one of these dose optimization techniques: automated exposure control; mA and/or kV adjustment per patient size (includes targeted exams where dose is matched to clinical indication); or iterative reconstruction. REPORTING DATA: Count of CT and Cardiac NM exams in prior 12 months: This patient has received 2 known CTs and 0 known cardiac nuclear medicine studies in the 12 months prior to the current study. 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 No acute infarct. No hemorrhage. Stable involutional changes of the brain. No mass effect. Cerebral ventricles: Stable ventricular size. No ventriculomegaly. Paranasal sinuses: Visualized sinuses are unremarkable. No fluid levels. Mastoid air cells: Visualized mastoid air cells are well aerated. Bones/joints: Unremarkable. No acute fracture. Soft tissues: Unremarkable. CT/CT head wo con* [id number] IMPRESSION: No acute intracranial abnormality.
[2022-10-30 17:02] LABS: Specific Gravity, Urine 1.015 (1.005-1.030); Urine Appearance Hazy (CLEAR); Urine Color Yellow (Yellow); pH Urine 5 (5-7)
[2022-10-30 17:03] LABS: Add Urine Culture? Yes; Add Urine Microscopic? YES; Bacteria Urine 1+ /hpf; Bilirubin Urine Neg (Negative); Blood Urine 2+ (Negative); Glucose Urine UA Norm (Normal); Ketones Urine Negative (Negative); Leukocyte Esterase Urine 2+ (Negative); Nitrate Urine Negative (Negative); Protein Urine Neg (Negative); RBC Urine >100 /hpf (0-2); Squamous Epithelial Cell Urine 0-4 /hpf (0-5); Urobilinogen Urine Neg (Negative); WBC Urine >100 /hpf (0-5)
[2022-10-30 17:05] VITALS: BP 122/61
[2022-10-30] MEDS: cefTRIAXone 1,000 MG in sodium chloride 0.9% (plus) 50 ML 100 MG IV (18:49)
[2022-10-30 19:00] VITALS: BP 151/56; PULSE 49; RESP 16; O2SAT 97
--- NOTE | 2022-11-04 09:37 | PC.NURSE ---
PT CONTACTED REGARDING FOLLOW UP TO PCP. PT SON ANSWERED PHONE. PT SON STATE PT UNABLE TO ANSWER PHONE. SON NOTIFIED OF NEED TO FOLLOW UP FOR BMP
--- NOTE | 2022-11-04 09:51 | PC.NURSE ---
[facility] CONTACTED REGARDING PT FOLLOW UP. SPOKE TO GERARDO. PT CONTACTED FOR FOLLOW UP APPOINTMENT FRIDAY AT 1100 11/06/22
== END 2022-10-30 19:20 | disposition home or self-care (01) ==
PROVIDERS: Emergency Provider Family Medicine; PCP Nurse Practitioner Family
DX: F03.90 Unspecified dementia, unspecified severity, without behavioral disturbance, psychotic disturbance, mood disturbance, and anxiety (principal); N30.90 Cystitis, unspecified without hematuria; Z79.82 Long term (current) use of aspirin; Z87.891 Personal history of nicotine dependence; J44.9 Chronic obstructive pulmonary disease, unspecified; E78.5 Hyperlipidemia, unspecified; I10 Essential (primary) hypertension; Z87.440 Personal history of urinary (tract) infections
CPT/HCPCS: 36415; 70450; 80053; 81001; 85025; 87040; 87086; 87186; 96365; 99285; J0696

== ENCOUNTER → 2022-11-05 11:48 | Outpatient (BNVA) | payer MEDICARE, OTHER, MEDICAID, SELFPAY | PROVIDERS: PCP Nurse Practitioner Family; Visit Provider Nurse Practitioner Family | DX: N17.9 Acute kidney failure, unspecified (principal); N39.0 Urinary tract infection, site not specified; F03.90 Unspecified dementia, unspecified severity, without behavioral disturbance, psychotic disturbance, mood disturbance, and anxiety | CPT/HCPCS: 80048 ==

== ENCOUNTER → 2022-12-10 17:02 | Outpatient (BNVA) | payer MEDICARE, OTHER, MEDICAID, SELFPAY | PROVIDERS: PCP Nurse Practitioner Family; Visit Provider Nurse Practitioner Family | DX: E55.9 Vitamin D deficiency, unspecified (principal) | CPT/HCPCS: 80053; 82306; 85025 ==

== ENCOUNTER 2023-06-12 10:29 | Emergency (ER) | payer MEDICARE, OTHER, MEDICAID, SELFPAY ==
[2023-06-12 10:30] VITALS: BMI 31.7
[2023-06-12 10:34] VITALS: BP 127/77; PULSE 67; RESP 16; TEMP 36.8; O2SAT 97
--- NOTE | 2023-06-12 10:38 | XR_ITS ---
WS: [id number] Portable AP upright chest, 06/12/2023 Clinical Data: ams Comparison: Portable chest, 07/26/2022 Findings: No nodules, masses or effusions are seen. The heart is slightly enlarged.. The pulmonary va scularity is not increased. No pneumonia or pneumothorax is seen. The aortic arch and descending thor acic aorta show calcification and tortuosity. Monitor leads are on the chest wall. Impression: Cardiomegaly and atherosclerosis.
--- NOTE | 2023-06-12 10:45 | ECG_ITS ---
[facility] Test Date: 2023-06-12 Pat Name: Stefanie Black Department: Room: Gender: Female Bonsai Tender: : 1940 Requested By: Ric Joesph Order Number: [id number] Regis MD: Pavel Galeana M.D. Measurements Intervals [place] Rate: 67 P: 0 OR: 0 QRS: 20 QRSD: 85 T: 74 QT: 366 QTc: 388 Interpretive Statements Sinus rhythm with first-degree AV block NONSPECIFIC T-WAVE ABNORMALITY ABNORMAL ECG Compared to ECG 07/26/2022 19:39:41 T-wave abnormality now present Electronically Signed On 06-12-2023 16:28:51 PROJECT MGR by Pavel Galeana M.D. [id number]
[2023-06-12 10:55] LABS: Basophils # 0.1 10^3/uL (0.0-0.1); Basophils % 1.6 %; Eosinophils # 0.3 10^3/uL (0.0-0.8); Eosinophils % 3.8 %; Hematocrit 32.3 % (36-47); Lymphocytes % 25.5 %; Mean Corpuscular HGB Conc 31.3 g/dL (30-55); Mean Corpuscular Hemoglobin 28.3 pg (27-33); Mean Corpuscular Volume 90.5 fl (85-98); Mean Platelet Volume 11.2 fL (7.4-10.4); Monocytes # 0.7 10^3/uL (0.2-0.9); Monocytes % 9.3 %; Neutrophils % 59.5 %; Nucleated Red Blood Cells % 0 %; Platelet Count 142 10^3/cmm (157-399); Red Blood Count 3.57 10^6/uL (3.85-5.65); Red Cell Distribution Width 13.9 % (12.1-15.1); White Blood Count 7.72 10^3/uL (3.29-11.43)
--- NOTE | 2023-06-12 11:04 | ED_ITS ---
HPI - Altered Mental Status 2 General: Chief Complaint: Altered Mental Status Stated Complaint: ams Time Seen by Provider: 06/12/23 10:34 History of Present Illness: Patient sent here by EMS from [facility] for altered mental status. EMS reports will care told him this morning when trying to get patient up and ask her questions she would just go uh huh uh huh uh huh did not verbalize any answers. Upon arrival to the ER patient is alert oriented and can answer questions appropriately. Family is at bedside and he states she usually gets a UTI and gets this way. Review of Systems 2 General: Reports: 10 or more systems reviewed and unremarkable except in HPI and below PFSH ED 2 PFSH: Medical History Anxiety and depression Chronic UTI GERD (gastroesophageal reflux disease) Vitamin D deficiency Hyperlipidemia Hypertension COPD (chronic obstructive pulmonary disease) UTI (urinary tract infection) Dementia Surgical History No pertinent past surgical history Family History Mother , in 90s Healthy adult Father , in 90s CAD (coronary artery disease) Leukemia Social History Smoking and tobacco/nicotine status: former use of tobacco/nicotine Quit status (tobacco/nicotine): has quit using Year quit tobacco: 1 YEAR AGO Second hand smoke exposure: No Alcohol intake: never Substance/Drug Use: never Household members: family Marital status: / Current occupational status: retired Physical Exam 2 Const: COMMON NORMALS: no acute distress, average body habitus, patient oriented x3, no limitations, healthy appearing, alert and well nourished HENMT: COMMON NORMALS: normocephalic, atraumatic, hearing grossly normal bilaterally, external ears normal, Normal external nose present, moist oral mucous membranes and oropharynx normal HEAD & SCALP: normocephalic and atraumatic NOSE: Normal external nose present EXTERNAL EAR: Yes external ears normal Neck/C-Spine: COMMON NORMALS: full ROM, no lymphadenopathy, supple, no meningeal signs, no JVD and Thyroid normal THYROID: Thyroid normal Chest: COMMONS NORMALS: normal inspection of the chest and normal palpation of entire chest wall Resp: COMMON NORMALS: normal respiratory effort, No retractions, No use of accessory muscles and clear to auscultation bilaterally AUSCULTATION: clear to auscultation bilaterally Cardio: COMMON NORMALS: no JVD, regular rate, regular rhythm, S1 normal heart sound present, S2 normal heart sound present, No gallops present (Cardio), No clicks present (Cardio), No murmurs present (Cardio) and No rub (Cardio) R ATE: regular rate RHYTHM: regular rhythm HEART SOUNDS: S1 normal heart sound present and S2 normal heart sound present GI: COMMON NORMALS: Normal to inspection, nondistended, normoactive bowel sounds present, Soft to palpation, non-tender, No hepatosplenomegaly present and no masses PALPATION: Yes Soft to palpation and Yes No hepatosplenomegaly present Neuro: COMMON NORMALS: patient oriented x3 SENSORIUM/ORIENTATION: Yes alert MENINGEAL SIGNS: Yes no meningeal signs Course 2 Vital Signs: Vital signs: Vital Signs Temperature 98.2 F 06/12/23 10:34 Pulse Rate 60 06/12/23 14:22 Respiratory Rate 16 06/12/23 10:34 Blood Pressure 141/64 06/12/23 13:25 Pulse Oximetry 99 06/12/23 13:25 Oxygen Delivery Me thod Room Air 06/12/23 13:25 MDM - Altered Mental Status Medical Decision Making Patient had physical exam and lab work. Lab work showed patient's white count was 7.72 BUN/creatinine was 38 and 1.6. Urinalysis showed nitrites and bacteria significant for urinary tract infection. Previous urine culture showed Proteus growth which was sensitive to Augmentin but resistant to the yamil quinolones and Bactrim. Patient will be given 1 g Rocephin in the IV here and discharged on Augmentin. Differential Diagnosis Likely altered mental status and dementia; Unlikely alcoholic intoxication, delirium, hypoglycemia, hyponatremia, subarachnoid hemorrhage or sepsis Medical Records I reviewed the patient's medical records. Lab Data I reviewed the patient's lab results. 06/12/23 10:46 06/12/23 10:46 Laboratory Results WBC 7.72 10^3/uL (3.29-11.43) 06/12/23 10:46 RBC 3.57 10^6/uL (3.85-5.65) L 06/12/23 10:46 Hgb 10.10 g/dL (11.27-16.99) L 06/12/23 10:46 Hct 32.3 % (36-47) L 06/12/23 10:46 MCV 90.5 fl (85-98) 06/12/23 10:46 MCH 28.3 pg (27-33) 06/12/23 10:46 MCHC 31.3 g/dL (30-55) 06/12/23 10:46 RDW 13.9 % (12.1-15.1) 06/12/23 10:46 Plt Count 142 10^3/cmm (157-399) L 06/12/23 10:46 MPV 11.2 fL (7.4-10.4) H 06/12/23 10:46 Neut % (Auto) 59.5 % 06/12/23 10:46 Lymph % (Auto) 25.5 % 06/12/23 10:46 [place] % (Auto) 9.3 % 06/12/23 10:46 Eos % (Auto) 3.8 % 06/12/23 10:46 Baso % (Auto) 1.6 % 06/12/23 10:46 Neut # (Auto) 4.60 10^3/uL (1.8-7.7) 06/12/23 10:46 Lymph # (Auto) 2.0 10^3/uL (0.8-4.8) 06/12/23 10:46 [place] # (Auto) 0.7 10^3/uL (0.2-0.9) 06/12/23 10:46 Eos # (Auto) 0.3 10^3/uL (0.0-0.8) 06/12/23 10:46 Baso # (Auto) 0.1 10^3/uL (0.0-0.1) 06/12/23 10:46 Nucleated RBC % (auto) 0 % 06/12/23 10:46 Nucleated RBCs # 0.0 /100WBC 06/12/23 10:46 Sodium 143 mmol/L (136-145) 06/12/23 10:46 Potassium 4.9 mmol/L (3.5-5.1) 06/12/23 10:46 Chloride 110 mmol/L (98-107) H 06/12/23 10:46 Carbon Dioxide 21 mmol/L (22-29) L 06/12/23 10:46 Anion Gap 16.9 (5-19) 06/12/23 10:46 BUN 38 mg/dL (8-23) H 06/12/23 10:46 Creatinine 1.6 mg/dL (0.5-0.9) H 06/12/23 10:46 GFR Calculation Not Reportable 06/12/23 10:46 Glucose 117 mg/dL (65-115) H 06/12/23 10:46 Calculated Osmolality 306 mOsm/kg (285-295) H 06/12/23 10:46 Calcium 8.6 mg/dL (8.5-10.5) 06/12/23 10:46 Total Bilirubin 0.2 mg/dL (0.15-1.2) 06/12/23 10:46 AST 9 U/L (0-32) 06/12/23 10:46 ALT 8 U/L (0-33) 06/12/23 10:46 Alkaline Phosphatase 87 U/L (35-105) 06/12/23 10:46 Total Protein 6.5 g/dL (6.6-8.7) L 06/12/23 10:46 Albumin 3.4 g/dL (3.5-5.2) L 06/12/23 10:46 Globulin 3.1 g/dL (1.3-4.6) 06/12/23 10:46 Urine Color Yellow (Yellow) 06/12/23 11:30 Urine Appearance Clear (CLEAR) 06/12/23 11:30 Urine pH 5 (5-7) 06/12/23 11:30 Ur Specific [place] 1.020 (1.005-1.030) 06/12/23 11:30 Urine Protein Neg (Negative) 06/12/23 11:30 Urine Glucose (UA) Norm (Normal) 06/12/23 11:30 Urine Ketones 1+ (Negative) H 06/12/23 11:30 Urine Blood 2+ (Negative) H 06/12/23 11:30 Urine Nitrate Positive (Negative) H 06/12/23 11:30 Urine Bilirubin Neg (Negative) 06/12/23 11:30 Urine Urobilinogen Norm mg/dL (Negative) 06/12/23 11:30 Ur Leukocyte Esterase Negative (Negative) 06/12/23 11:30 Urine RBC Rare /hpf (0-2) 06/12/23 11:30 Urine WBC 0-4 /hpf (0-5) H 06/12/23 11:30 Ur Squamous Epith Cells 0-4 /hpf (0-5) H 06/12/23 11:30 Ur Transition Epith Cell 0-4 /hpf 06/12/23 11:30 Amorphous Sediment Not Reportable 06/12/23 11:30 Urine Bacteria 1+ /hpf (NONE) H 06/12/23 11:30 Hyaline Casts 0-4 /lpf H 06/12/23 11:30 Urine Mucus Trace /hpf 06/12/23 11:30 All radiology interpretation(s) finalized by discharge EKG Data EKG 1: I personally reviewed and interpreted this EKG as follows: EKG interpretation date: 06/12/23 EKG interpretation time: 10:45 Prior EKG tracings: not available for review Interpretation: EKG showed ventricular rate 67 bpm, QRS duration 85, QTc 382, supraventricular rhythm, nonspecific T wave abnormality Discharge Plan Discharge Patient Disposition: Home Clinical Impression: UTI (urinary tract infection) Qualifiers: Urinary tract infection type: acute cystitis Hematuria presence: with hematuria Qualified Code(s): N30.01 - Acute cystitis with hematuria Altered mental status Qualifiers: Altered mental status type: disorientation Qualified Code(s): R41.0 - Disorientation, unspecified Condition: Stable Prescriptions: New amoxicillin-pot clavulanate 875-125 mg tablet 1 tab PO Q12H Qty: 20 0RF No Action ascorbic acid (vitamin C) 500 mg tablet,chewable 1 g PO BID 90 Days Qty: 360 3RF folic acid 1 mg tablet 1 mg PO QAM Qty: 90 1RF ondansetron HCl 4 mg Tablet 4 mg PO Q6H PRN (Reason: Nausea And Vomiting) citalopram 10 mg tablet 10 mg PO DAILY methenamine hippurate 1 gram tablet 1 g PO BID famotidine 20 mg tablet 20 mg PO QAM baclofen 10 mg tablet 10 mg PO BID amlodipine 10 mg tablet 10 mg PO DAILY Combivent Respimat 20-100 mcg/actuation mist 1 puff inhalation Q4H PRN (Reason: Shortness Of Breath) Aspir-81 81 mg Tablet,Delayed Release (Dr/Ec) 81 mg PO DAILY Discharge Orders: Discharge ED (Routine); Ordered 06/12/23 Ordered By: Ric Joseph Referrals: Cathy Maher FNP [Primary Care Provider] - 1 week Patient Instructions: Altered Mental Status (ED), Urinary Tract Infection in Older Adults (ED) Activity Restrictions/Additional Instructions: Please finish all antibiotics as directed. Please follow-up with your family practice physician in the next 7 to 10 days for further evaluation and treatment. Coding Level of Care Code ED Lead Customer Service Representative for Joe Bowen
[2023-06-12 11:30] LABS: Alanine Aminotransferase 8 U/L (0-33); Albumin Level 3.4 g/dL (3.5-5.2); Alkaline Phosphatase 87 U/L (35-105); Anion Gap 16.9 (5-19); Aspartate Amino Transferase 9 U/L (0-32); Blood Urea Nitrogen 38 mg/dL (8-23); Calcium 8.6 mg/dL (8.5-10.5); Carbon Dioxide 21 mmol/L (22-29); Chloride 110 mmol/L (98-107); Globulin 3.1 g/dL (1.3-4.6); Glucose 117 mg/dL (65-115); Osmolality Calculated 306 mOsm/kg (285-295); Potassium 4.9 mmol/L (3.5-5.1); Sodium 143 mmol/L (136-145); Total Bilirubin 0.2 mg/dL (0.15-1.2); Total Protein 6.5 g/dL (6.6-8.7)
[2023-06-12 11:33] VITALS: BP 118/57; PULSE 68; O2SAT 97
[2023-06-12 12:30] VITALS: BP 118/57; PULSE 61; O2SAT 98
[2023-06-12 12:49] LABS: Bilirubin Urine Neg (Negative); Blood Urine 2+ (Negative); Glucose Urine UA Norm (Normal); Ketones Urine 1+ (Negative); Leukocyte Esterase Urine Negative (Negative); Nitrate Urine Positive (Negative); Protein Urine Neg (Negative); Urine Appearance Clear (CLEAR); Urine Color Yellow (Yellow); Urobilinogen Urine Norm (Negative); pH Urine 5 (5-7)
[2023-06-12 12:50] LABS: Add Urine Microscopic? YES
[2023-06-12 12:55] LABS: Bacteria Urine 1+ /hpf; Hyaline Casts Urine 0-4 /lpf; Mucus Urine TRACE /hpf; RBC Urine RARE /hpf (0-2); Squamous Epithelial Cell Urine 0-4 /hpf (0-5); Transitional Epi Cells Urine 0-4 /hpf; WBC Urine 0-4 /hpf (0-5)
[2023-06-12 12:56] LABS: Add Urine Culture? Yes; Charge for UA Resulting for Rev
[2023-06-12 13:25] VITALS: BP 141/64; PULSE 56; O2SAT 99
[2023-06-12] MEDS: cefTRIAXone 1,000 MG in sodium chloride 0.9% (plus) 50 ML 100 MG IV (14:01)
[2023-06-12 14:22] VITALS: PULSE 60
== END 2023-06-12 15:24 | disposition home or self-care (01) ==
PROVIDERS: Emergency Provider Emergency Medicine; PCP Nurse Practitioner Family
DX: N30.01 Acute cystitis with hematuria (principal); R41.0 Disorientation, unspecified; Z79.82 Long term (current) use of aspirin; Z87.891 Personal history of nicotine dependence; E78.5 Hyperlipidemia, unspecified; I10 Essential (primary) hypertension; J44.9 Chronic obstructive pulmonary disease, unspecified; F03.90 Unspecified dementia, unspecified severity, without behavioral disturbance, psychotic disturbance, mood disturbance, and anxiety; Z87.440 Personal history of urinary (tract) infections
CPT/HCPCS: 36415; 71045; 80053; 81001; 81003; 85025; 87077; 87086; 87186; 93005; 96374; 99285; J0696